=== PATIENT | male | born 1945 | race Two or more races ===

== ENCOUNTER 2017-06-22 11:35 | Day surgery (SDC) | payer MEDICARE ==
[2017-06-16 10:07] VITALS: BMI 37.3
--- NOTE | 2017-06-21 20:28 | HP ---
HISTORY AND PHYSICAL DATE OF SURGERY: 06/22/2017 Marcos Ramirez is a 72-year-old patient seen with progressive left knee pain. Treatment options were discussed. He elected to proceed with left knee arthroscopy. Consent was obtained. Medical clearance provided by Dr. Olivares. PAST MEDICAL HISTORY: 1. Hypertension. 2. Asthma. 3. Cardiovascular disease. 4. Gout. PAST SURGICAL HISTORY: 1. Appendectomy. 2. Herniorrhaphy. 3. Knee arthroscopy. DAILY MEDICATIONS: 1. Atenolol. 2. Enalapril. 3. Singulair. 4. Symbicort. 5. Allopurinol. 6. Aspirin. ALLERGIES: PENICILLIN. SOCIAL HISTORY: Patient denies current tobacco use. PHYSICAL EVALUATION OF THE LEFT KNEE: Range of motion negative 3 to 120 degrees. Mild effusion. Tenderness, medial joint line. Positive medial Radha's. Ligaments stable. Crepitus in medial patellofemoral compartments with range of motion. Hip rotation without pain. Distal neurovascular exam intact. RADIOGRAPHS: Radiographs of the left knee revealed moderate medial patellofemoral compartment osteoarthritis. An MRI of the left knee revealed medial meniscal tear and osteoarthritis. IMPRESSION: 1. Internal derangement of the left knee with medial meniscal tear. 2. Left knee osteoarthritis. 3. Hypertension. 4. Asthma. PLAN: Left knee arthroscopy with partial meniscectomy and debridement. MMODL / IJN: [id number] /
[~2017-06-22 11:35] MED LIST: DEXAMETHASONE SOD PHOSPHATE 10 MG/ML 1 ML VIAL IV ONE; HYDROmorphone 0.5 MG/0.5 ML SYRINGE IVP PRN; LACTATED RINGERS 1,000 ML IV SCH; LIDOCAINE 1% 20 ML VIAL (10MG/ML) FOR IV START INTRADERMA PRN; MIDAZOLAM 2 MG/2 ML VIAL IV PRN; ONDANSETRON 4 MG/2 ML VIAL IVP ONE; SCOPOLAMINE 1.5MG/72HR PATCH TRANSDERM ONE; ceFAZolin IN SWFI 2 GM/20 ML SYRINGE IVP ONE
[2017-06-22] MEDS ORDERED: BUPIVACAINE (PF) 0.25% 30 ML VIAL SQ ONE (12:45)
[2017-06-22] MEDS ORDERED: fentaNYL (PF) 50 MCG/ML 2 ML AMP ONE (13:04)
[2017-06-22] MEDS ORDERED: LIDOCAINE 1% INJ 10MG/ML (20 ML MDV) ONE (13:04)
[2017-06-22] MEDS ORDERED: MIDAZOLAM 2 MG/2 ML VIAL ONE (13:04)
[2017-06-22] MEDS ORDERED: PROPOFOL 10 MG/ML 20 ML VIAL IV ONE (13:04)
[2017-06-22] MEDS ORDERED: KETAMINE 10 MG/ML 20 ML VIAL ONE (13:04)
[2017-06-22] MEDS ORDERED: SUCCINYLCHOLINE CHLORIDE VIAL 200 MG/10 ML VIAL IV ONE (13:04)
[2017-06-22] MEDS ORDERED: GLYCOPYRROLATE 0.2 MG/ML 2 ML VIAL ONE (13:04)
[2017-06-22] MEDS ORDERED: LACTATED RINGERS 1,000 ML IV ONE (14:07)
--- NOTE | 2017-06-22 14:11 | P.OP ---
Date of Procedure: 06/22/17 Preoperative Diagnosis: Internal derangement left knee Postoperative Diagnosis: 1. Tear medial and lateral meniscus left knee 2. Grade 2/3 chondromalacia medial femoral condyle left knee 3. Grade 2/3 chondromalacia patella left knee 4. Partial ACL tear left knee 5. Reactive synovitis medial and suprapatellar compartments left knee Procedure(s) Performed: 1. Arthroscopic partial medial and lateral meniscectomy left knee 2. Arthroscopic chondroplasty medial femoral condyle left knee 3. Arthroscopic chondroplasty patella left knee 4. Arthroscopic debridement partial ACL tear left knee 5. Arthroscopic partial synovectomy medial and suprapatellar compartments left knee Anesthesia: GETA, local Surgeon: Lorenzo Mackey Estimated Blood Loss (ml): 7 Pathology: none sent Condition: stable Disposition: PACU Indications for Procedure: 72-year-old patient seen with progressive left knee pain. After treatment options were discussed, he elected to proceed with arthroscopy. Operative Findings: see description of procedure Description of Procedure: Patient was taken to the operative suite. Patient underwent a general anesthetic by the department of anesthesia. Patient was given preoperative antibiotics. The left lower extremity was placed in a well-padded arthroscopic leg sharma. The left leg was prepped and draped in the normal sterile orthopedic fashion. A lateral parapatellar and suprapatellar incision was made. Trochars were inserted. Arthroscopy was initiated. Suprapatellar pouch revealed diffuse thick reactive synovitis. The patellofemoral joint appeared to articulate congruently. There as grade 2/3 chondromalacia of the patella and femoral sulcus with osteochondral tears.. The scope was guided into the medial gutter. No loose bodies or plica were identified. The scope was then guided into the medial compartment. A medial parapatellar incision was made. Trocar inserted followed by probe. Was a complex tear medial meniscus involving the mid body and posterior horn. There were grade 2/3 chondromalacia changes of the medial femoral condyle with osteochondral tears. There was an area of grade 4 chondromalacia involving the medial tibial plateau medially. There was reactive synovitis anteriorly. I performed a partial medial meniscectomy down to stable tissue. I performed a chondroplasty of the medial femoral condyle down to stable tissue and partial synovectomy. The residual meniscus was stable as was the residual osteochondral surface of the femoral condyle. Scope and probe were then guided into the intercondylar notch. Cruciates were identified with some partial tearing noted of the anterior fibers of the anterior cruciate ligament. I debrided that down to stable tissue. It involved only tendon 20% with the remaining 80 a 90% found to be stable. The PCL was stable.. The scope and probe were then guided into lateral compartment. There were some superficial tearing of the midbody lateral meniscus. There were grade 1 chondromalacia changes of the lateral tibial plateau with no osteochondral tears. I performed a partial lateral meniscectomy down to stable tissue. The residual meniscus was found to be stable. The scope was in guided back into the suprapatellar compartment. I introduced a motorized shaver into the super patellar compartment. I debrided some piecemeal fragments of meniscus I encountered. I performed a chondroplasty of the patella down to stable tissue. I performed a partial synovectomy. The residual osteochondral surface of the patella was stable. I now took one more look on the entire knee, no residual debris. Instruments were now removed from the joint. The joint was infiltrated with .25% Marcaine. Steri-Strips were applied to the portal sites. Sterile dressings were applied. The patient was placed into a ZEB hose. No tourniquet was utilized. The patient was awakened, transferred to a bed and taken to recovery stable satisfactory condition.
[2017-06-22 14:13] VITALS: TEMP 96.9
[2017-06-22 15:20] VITALS: RESP 18
[2017-06-22 16:09] VITALS: BP 138/79; PULSE 74
== END 2017-06-22 16:35 | disposition home or self-care (01) ==
LOC: OR 11:35
PROVIDERS: ATTEND Orthopaedic Surgery
DX: S83.242A Other tear of medial meniscus, current injury, left knee, initial encounter (principal); S83.282A Other tear of lateral meniscus, current injury, left knee, initial encounter; X58.XXXA Exposure to other specified factors, initial encounter; M22.42 Chondromalacia patellae, left knee; S83.512A Sprain of anterior cruciate ligament of left knee, initial encounter; M65.862 Other synovitis and tenosynovitis, left lower leg; M17.12 Unilateral primary osteoarthritis, left knee; I10 Essential (primary) hypertension; J45.909 Unspecified asthma, uncomplicated; I25.10 Atherosclerotic heart disease of native coronary artery without angina pectoris; M10.9 Gout, unspecified; Z79.82 Long term (current) use of aspirin; Z79.51 Long term (current) use of inhaled steroids; Z79.899 Other long term (current) drug therapy; Z88.0 Allergy status to penicillin
CPT/HCPCS: 29880; J2250; J0330; J1100; J2405; J2001; J3010; J2704; J0690

== ENCOUNTER → 2017-11-15 | Outpatient (CLI) | payer MEDICARE ==
--- NOTE | 2017-11-15 23:40 | MR ---
EXAMINATION TYPE: MR tspine/lspine wo con DATE OF EXAM: 11/15/2017 COMPARISON: NONE HISTORY: Back Pain x3 weeks TECHNIQUE: Multiplanar, multisequence imaging of the lumbar spine is performed without IV contrast. FINDINGS: The lumbar vertebra have normal alignment. There is mild uniform narrowing of lumbar disc s paces. The neural foramina are fairly well-maintained. There are small posterior disc herniation at L 5-S1 without significant impingement on the spinal canal. There is no spinal stenosis. There is mild hypertrophic facet arthropathy at L4-5 and L5-S1. There is no lumbar paraspinal mass. There is no com pression fracture. I see no focal bone destruction. There is small posterior disc bulge at L2-3 witho ut impingement on the spinal canal. There is moderate anterior hypertrophic spurring at L2-3 L3-4. IMPRESSION: Spondylotic changes. No spinal stenosis. Small posterior L5-S1 disc bulging and herniation without im pingement on the spinal canal. No spinal stenosis. No fracture. Moderate anterior osteophyte formatio n at L2-3 L3-4. MR scan thoracic spine. TECHNIQUE: Multiplanar multiecho imaging of the thoracic spine was performed with no contrast. FINDINGS: Thoracic vertebra have fairly normal spacing and alignment for the patient's age. There is no arian elizabeth fracture. There is no spinal stenosis. Thoracic spinal cord has normal signal pattern without ev idence of edema. There is no thoracic paraspinal mass. There is no evidence of focal bone destruction . Posterior elements appear intact. There is mild anterior spurring of the endplates. IMPRESSION: Mild multilevel spondylotic changes. No fracture. No spinal stenosis.
== END | disposition home or self-care (01) ==
LOC: RADMRIMAIN 20:23
PROVIDERS: ATTEND Internal Medicine
DX: M25.78 Osteophyte, vertebrae (principal); M51.27 Other intervertebral disc displacement, lumbosacral region; M47.814 Spondylosis without myelopathy or radiculopathy, thoracic region
CPT/HCPCS: 72146; 72148

== ENCOUNTER → 2018-03-30 | Outpatient (CLI) | payer MEDICARE | END | disposition home or self-care (01) | LOC: LABPAT 10:44 | PROVIDERS: ATTEND Orthopaedic Surgery | DX: Z01.812 Encounter for preprocedural laboratory examination (principal) | CPT/HCPCS: 87070 ==

== ENCOUNTER 2018-04-23 10:11 | Day surgery (SDC) | payer MEDICARE ==
[2018-04-17 16:10] VITALS: BMI 36.6
--- NOTE | 2018-04-22 19:13 | HP ---
HISTORY AND PHYSICAL REASON FOR ADMISSION: Surgery 04/23/2018. HISTORY OF PRESENT ILLNESS: Mikey Ramirez is a 73-year-old patient seen with symptomatic left knee osteoarthritis. We discussed treatment options. He elected to proceed with total knee arthroplasty. Consent was obtained. Medical clearance was provided by Dr. Olivares. PAST MEDICAL HISTORY: Hypertension, asthma, gout. PAST SURGICAL HISTORY: Appendectomy, herniorrhaphy, knee arthroscopy. MEDICATIONS: Atenolol, enalapril, Singulair, Symbicort, allopurinol. ALLERGIES: PENICILLIN. SOCIAL HISTORY: Patient denies tobacco use. PHYSICAL EXAMINATION: Evaluation of left knee: Range of motion is -2 to 115 degrees, tenderness medial joint line. Crepitus medial patellofemoral compartments with range of motion. Ligaments stable. Hip rotation without pain. Distal neurovascular exam is intact. RADIOGRAPHS: Left knee radiographs reveal severe medial moderate patellofemoral compartment osteoarthritis. IMPRESSION: 1. Left knee osteoarthritis. 2. Hypertension. 3. Asthma. 4. Gout. PLAN: Left total knee arthroplasty. Surgery scheduled for 04/23/2018. MMODL / IJN: [id number] /
[~2018-04-23 10:11] MED LIST changes: +ACETAMINOPHEN TAB 500 MG TAB PO ONE; -DEXAMETHASONE SOD PHOSPHATE 10 MG/ML 1 ML VIAL IV ONE; +FUROSEMIDE 20 MG TAB PO SCH; -HYDROmorphone 0.5 MG/0.5 ML SYRINGE IVP PRN; -LACTATED RINGERS 1,000 ML IV SCH; +MELOXICAM 7.5 MG TAB PO ONE; -ONDANSETRON 4 MG/2 ML VIAL IVP ONE; -SCOPOLAMINE 1.5MG/72HR PATCH TRANSDERM ONE; +TRANEXAMIC ACID 1,000 MG in SODIUM CHLORIDE 0.9% 50 ML IVPB ONE; -ceFAZolin IN SWFI 2 GM/20 ML SYRINGE IVP ONE; +fentaNYL (PF) 50 MCG/ML 2 ML AMP IV PRN
[2018-04-23 10:47] VITALS: RESP 16
[2018-04-23] MEDS ORDERED: ONDANSETRON 4 MG/2 ML VIAL IVP ONE (11:14)
[2018-04-23] MEDS ORDERED: DEXAMETHASONE SOD PHOSPHATE 10 MG/ML 1 ML VIAL IV ONE (11:15)
[2018-04-23] MEDS: LACTATED RINGERS 1,000 ML IV SCH ×4 (11:21→20:55)
[2018-04-23] MEDS ORDERED: MIDAZOLAM 2 MG/2 ML VIAL IV ONE (11:35)
[2018-04-23] MEDS ORDERED: MIDAZOLAM 2 MG/2 ML VIAL ONE (11:56)
[2018-04-23] MEDS ORDERED: SODIUM CHLORIDE 0.9% 100 ML BAG ONE (11:56)
[2018-04-23] MEDS ORDERED: ceFAZolin 1,000 MG VIAL IVPB ONE (11:56)
[2018-04-23] MEDS ORDERED: PROPOFOL 10 MG/ML 20 ML VIAL IV ONE (11:56)
[2018-04-23] MEDS ORDERED: TRANEXAMIC ACID 1,000 MG/10 ML VIAL ONE (11:56)
[2018-04-23] MEDS: ceFAZolin IN SWFI 2 GM/20 ML SYRINGE IVP ONE ×2 (11:56→16:48)
[2018-04-23] MEDS ORDERED: CLINDAMYCIN 1,800 MG in SODIUM CHLORIDE 0.9% IRRIGATIO 3,000 ML IRRIGATION ONE (11:56)
[2018-04-23] MEDS ORDERED: fentaNYL (PF) 50 MCG/ML 2 ML AMP ONE (11:56)
[2018-04-23] MEDS: ROPIVACAINE 246.25 MG, EPINEPHrine 0.5 MG, KETOROLAC 30 MG, cloNIDine HCL/PF 80 MCG, WA... MISCELLANE ONE ×10 (12:34→13:33)
[2018-04-23] MEDS ORDERED: ROPIVACAINE 1,100 MG, SODIUM CHLORIDE 0.9% 500 ML 330 ML MISCELLANE PRN ×2 (12:44)
--- NOTE | 2018-04-23 12:44 | P.ONQ ---
Anesthesiology Proc Note - PNB - Peripheral Nerve Block Performed Left Adductor Canal Infusion Time Out Performed: Yes Procedure Start Time: 11:34 Procedure Stop Time: 11:45 Indication: Acute Post-Operative Pain, Requested by physician Sedation Type: Sedate with meaningful contact maintained Preparation: Sterile Dressing Position: Supine Catheter: Indwelling Needle Types: On-Q Needle Size: 100mm (4") Needle Gauge: 21 Technique: Ultrasound Injectate: 0.5% Ropivacaine (see comment for volume) (ropi .5% 20cc) Blood Aspirated: No Pain Paresthesia on Injection Noted: No Resistance on Injection: Normal Events: Uneventful and Well Tolerated
[2018-04-23] MEDS ORDERED: traMADol 50 MG TAB PO PRN (14:22)
[2018-04-23] MEDS ORDERED: HYDROmorphone 1 MG/ML 1 ML SYRINGE IVP PRN ×3 (14:22)
[2018-04-23] MEDS ORDERED: HYDROcodone/APAP 5-325MG 1 EACH TAB PO PRN (14:22)
[2018-04-23] MEDS ORDERED: NALOXONE 0.4 MG/ML 1 ML VIAL IV PRN (14:22)
[2018-04-23] MEDS ORDERED: ONDANSETRON 4 MG/2 ML VIAL IVP PRN (14:22)
--- NOTE | 2018-04-23 14:22 | P.OP ---
Date of Procedure: 04/23/18 Preoperative Diagnosis: Left knee osteoarthritis Postoperative Diagnosis: Left knee osteoarthritis Procedure(s) Performed: Left total knee arthroplasty Implants: 1. Depuy attune size 7 left cruciate retaining cemented femur 2. Depuy attune size 7 fixed bearing cemented tibial baseplate 3. Depuy attune size 7 fixed bearing cruciate retaining 5 mm polyethylene tibial insert 4. Depuy attune 41 mm all polyethylene cemented patella Anesthesia: regional (Adductor canal catheter), local, spinal Surgeon: Lorenzo Mackey Marketing Account Executive #1: Saurav Charles Estimated Blood Loss (ml): 40 Pathology: other (Bone) Condition: stable Disposition: PACU Indications for Procedure: 73-year-old patient seen with symptomatic left knee osteoarthritis. After treatment options were discussed, he elected to proceed with total knee arthroplasty Operative Findings: See description of procedure Description of Procedure: Patient was taken to the operative suite after having an adductor canal catheter placed by the department of anesthesia. Patient underwent a spinal anesthetic by the department of anesthesia. Patient was given preoperative IV intake antibiotics and TXA. A well-padded tourniquet was placed about the left lower extremity. The lower extremity was then prepped and draped in the normal sterile orthopedic fashion. The extremity was elevated, a tourniquet was insufflated to 300. A standard anterior incision was made sharply through skin. Dissection was taken down through the subcutaneous soft tissues down to the extensor mechanism. A medial arthrotomy was performed, patella was everted and knee was flexed. There was advanced osteoarthritis noted. I introduced my distal intramedullary femoral drill. I then introduced the distal femoral cutting jig. Yao FLOR secured the cutting jig with 2 pins. I held retractors in position while Yao FLOR performed the distal femoral resection through the guide area we now removed her distal femoral cutting guide. We now placed our 4-in-1 femoral cutting block and positioned and it was secured with 2 pins by Yao FLOR while I held the block in position. The distal femoral finishing was now completed. A proximal tibial cutting guide was positioned. I held the guide in the appropriate position with both hands well Yao FLOR inserted stabilizing pins into the guide. Proximal tibial cut was made. We now placed a trial femoral component into position, along with an appropriate size tibial tray and insert. We now took the knee through range of motion and had full extension good flexion and good overall soft tissue balance noted. The patella was everted and stabilized with 2 towel clips held by Yao FLOR while I performed a flush with patellar quad tendon utilizing a fresh sawblade. We templated the patella, appropriate drill holes were made. An appropriate trial patella was positioned, knee was taken through full range of motion with the patella tracking very nicely. The trial patella was removed. Drill holes were made through the femoral component. All trial components were removed after marking off the appropriate rotation of the tibia. Retractors were now positioned along the proximal tibia. An appropriate keel punch was made with the appropriate size tibial guide by myself on Yao FLOR assisted by holding retractors. At this point appropriate size implants were chosen and opened. The joint was irrigated copiously with pulse lavage mechanical irrigation. The posterior capsule was infiltrated with local analgesic. The wound was irrigated with pulse lavage mechanical irrigation. We mixed antibiotic methylmethacrylate. We placed the knee into flexion. We placed multiple retractors assisted by Yao FLOR to expose the proximal tibia. Once the methyl methacrylate was ready, the tibial component was cemented into place removing any excess methylmethacrylate form by both myself and Yao FLOR. The femoral component was cemented into place removing the removing any excess methylmethacrylate performed by both myself and Yao FLOR. We then inserted the appropriate size polyethylene tibial insert. We made sure that it was locked into position. We took the knee into full extension, and then back in a flexion making sure we had removed any excess methylmethacrylate. The patellar component was then cemented down and secured with clamp. Excess methylmethacrylate removed. We kept the knee in full extension, patellar clamp in position until methylmethacrylate had hardened. Once it had hardened the patellar clamp was removed. The knee was taken through full range of motion. The patella tracked nicely. There was good soft tissue balancing. The tourniquet was now released. Additional hemostasis was achieved via electrocautery. A second gram of TXA was given. The wound again was irrigated with pulse lavage mechanical irrigation. The superficial soft tissues were infiltrated local analgesic. The extensor mechanism was repaired with Vicryl. We checked the repair with range of motion and it was stable. The subcutaneous soft tissues were repaired with Vicryl in layers. The skin was approximated with pernio/Dermabond. Sterile dressings were applied followed by loose web roll and Agustin bandage. The patient was transferred to a bed, and taken to recovery in stable and satisfactory condition. Yao FLOR assisted with this complex procedure.
--- NOTE | 2018-04-23 14:59 | XR ---
EXAMINATION TYPE: XR knee limited LT DATE OF EXAM: 04/23/2018 CLINICAL HISTORY: Left knee pain and arthritis status post total knee replacement. TECHNIQUE: Portable AP and crosstable lateral views of the left knee are obtained immediately postop eratively. COMPARISON: None FINDINGS: Metallic hardware from total left knee arthroplasty is seen and appears satisfactory in al ignment and position. There is evidence of recent surgery with diffuse subcutaneous gas , vertical s kin evette, and percutaneous suprapatellar surgical drain noted. IMPRESSION: METALLIC HARDWARE FROM TOTAL LEFT KNEE ARTHROPLASTY IS SATISFACTORY IN ALIGNMENT.
[2018-04-23] MEDS: HYDROcodone/APAP 5-325MG 1 EACH TAB PO PRN ×2 (17:04→22:53)
[2018-04-23] MEDS: ceFAZolin IN SWFI 2 GM/20 ML SYRINGE IVP SCH (18:12)
[2018-04-23] MEDS ORDERED: ALBUTEROL NEBULIZED 2.5 MG/3 ML INHALATION PRN (18:19)
[2018-04-23] MEDS ORDERED: ALPRAZolam 0.5 MG TAB PO PRN (18:19)
--- NOTE | 2018-04-23 18:36 | P.CONS ---
History of Present Illness - Reason for Consult Consult date: 04/23/18 Medical management Requesting physician: Lorenzo Mackey - Chief Complaint Left total knee arthroplasty, asthma, hypertension, severe GERD - History of Present Illness 73-year-old male mildly overweight [address] Oliv[address]'s patient with past medical history of asthma, hypertension, hyperlipidemia and BPH who had suffered from severe increase osteoarthritis of the left knee for the last few years, patient ended up having arthroscopy of the knee few years ago and has done well with it for few years. In the last few month patient has been having increased pain and arthritis decreased mobility and worsening symptom over the left knee was seen Dr. Mackey and diagnosed with severe advanced osteoarthritis and plan to go for total knee arthroplasty. Surgery was done successfully today with no major complication patient sitting on the side of the bed with his family around feeling well pain is under control blood pressure is well controlled not having any trouble with his respiration. Review of Systems CONSTITUTIONAL: over Wt in no acute respiratory distress. EYES: No icterus sclerae, no conjunctivitis. EARS, NOSE, MOUTH, THROAT, and FACE: No sore throat, lymphadenopathy, carotid bruits or deformity. RESPIRATORY: No SOB cough or wheezes. CARDIOVASCULAR: No CP, Palpitation, PND, Orthopnea, or angina. GASTROINTESTINAL: No Abd pain, Nausea or vomiting, no Diarrhea or constipation, No GI Bleed, no distention or masses. GENITOURINARY: Negative for Hematuria or UTI, no kidney stones. INTEGUMENT/BREAST: Negative for any muscular injury with mild osteoarthritis.. HEMATOLOGIC/LYMPHATIC: Negative for bleed or purpura. MUSCULOSKELTAL: Negative for Myalgia or arthralgia. L Knee surgery. NEURLOGICAL: No LOC, Sz or syncope, blurred vision dizziness or abnormality.. BEHAVIORAL/PSYCH: Negative. ENDOCRINE: Negative. Past Medical History Past Medical History: Asthma, Eye Disorder, GERD/Reflux, Hypertension, Osteoarthritis (OA) Additional Past Medical History / Comment(s): MACULAR DEGENERATION History of Any Multi-Drug Resistant Organisms: None Reported Past Surgical History: Appendectomy, Heart Catheterization, Hernia Repair Additional Past Surgical History / Comment(s): ARTHROSCOPIC RIGHT AND LEFT KNEE , BILATERAL WRIST SURGERY, LEFT HAND -JOINT SURGERY, BRONCHOSCOPY , UMBICAL HERNIA REPAIR , CATARACT SURGERY-BILATERAL Past Anesthesia/Blood Transfusion Reactions: No Reported Reaction Past Psychological History: Anxiety Smoking Status: Former smoker Past Alcohol Use History: Daily Additional Past Alcohol Use History / Comment(s): STARTED SMOKING AT AGE 14 QUIT 1968 SMOKED 1PPD Past Drug Use History: None Reported - Past Family History Mother Family Medical History: No Reported History Medications and Allergies Home Medications Medication Instructions Recorded Confirmed Type ALPRAZolam [Xanax] 0.5 mg PO BID PRN 06/16/17 04/23/18 History Albuterol Inhaler [Ventolin Hfa 1 - 2 puff INHALATION Q6HR PRN 06/16/17 History Inhaler] Allopurinol [Zyloprim] 300 mg PO DAILY 06/16/17 04/23/18 History Ascorbic Acid [Vitamin C] 500 mg PO DAILY 06/16/17 04/17/18 History Aspirin 81 mg PO DAILY 06/16/17 04/17/18 History Atenolol 25 mg PO DAILY 06/16/17 04/23/18 History Budesonide-Formot 160-4.5 Mcg 1 puff INHALATION BID 06/16/17 04/23/18 History [Symbicort 160-4.5 Mcg Inhaler] Enalapril [Vasotec] 7.5 mg PO DAILY 06/16/17 04/23/18 History Furosemide [Lasix] 20 mg PO MOWEFR 06/16/17 04/23/18 History Montelukast Sodium [Singulair] 10 mg PO 1600 06/16/17 04/23/18 History Pantoprazole Sodium 40 mg PO DAILY 06/16/17 04/23/18 History Vit C/E/Zn/Coppr/Lutein/Zeaxan 1 each PO BID 06/16/17 04/17/18 History [Preservision Areds 2 Softgel] Allergies Allergy/AdvReac Type Severity Reaction Status Date / Time Penicillins Allergy Rash/Hives Verified 04/23/18 10:28 Physical Exam Vitals: Vital Signs Temp Pulse Resp BP Pulse Ox 04/23/18 16:58 97.8 F 59 L 143/78 100 04/23/18 15:56 59 L 16 120/75 99 04/23/18 15:41 58 L 16 116/78 98 04/23/18 15:24 57 L 16 119/70 96 04/23/18 15:09 60 16 118/67 96 04/23/18 14:56 61 16 118/72 95 04/23/18 14:36 97.5 F L 78 16 117/58 95 04/23/18 10:46 98.2 F 60 16 143/75 95 Intake and Output 04/23/18 04/23/18 04/23/18 06:59 14:59 22:59 Intake Total 801 150 Output Total 40 Balance 761 150 Intake: IV 801 150 Output: Estimated Blood Loss 40 Other: Weight 115.666 kg General Appearance: Alert, cooperative, no distress, appears stated age, mildly over Wt. Neck HEENT: Supple, no lymphadenopathy, no thyroid enlargement, no carotid bruits. Lungs: Clear to auscultation without crackles or wheezes no rhonchi, no deformity. Chest Wall: Chest wall normal expansion with deep inspiration no tenderness and no deformity was found on exam, no costochondral pain or discomfort. Heart: Regular rate and rhythm, S1, S2 normal, no murmur, rub or gallop. Back: Symmetric, no curvature, ROM normal, no CVA tenderness. Abdomen: Soft, non-tender, bowel sounds active all four quadrants, no masses, no organomegaly. Extremities: normal R side, atraumatic, no cyanosis or edema, L side surgery side with pain management system above the knee no redness or deformity no bleeding. Pulses: 2+ and symmetric. Skin: Skin color, texture, tugor normal, no rashes or lesions. Neurologic: Alert oriented x3 cranial nerves II through XII intact, no motor deficit, no abnormal balance or gait. Assessment and Plan Plan: 1 post left total knee arthroplasty: Stable surgery went well, continue postsurgical protocol with GI, DVT and pulmonary protocol. Med reconsultation was done patient is very stable hemodynamically. 2 asthma: Continue his Ventolin and Symbicort also continue patient on Singulair. 3 hypertension: Has been on enalapril 7.5 mg a day and atenolol 25 daily resume both medication. 4 chronic edema: Has been on furosemide 20 mg a day resume medication tomorrow. 5 gout: No flareup lately has been on allopurinol 300 mg a day. 6 mild anxiety attacks: Has been on Xanax on as needed basis. 7 BPH: Watch for any urinary retention. 8 GERD/GI prophylaxis: Resume pantoprazole 40 mg daily. 8 DVT prophylaxis: Patient was started on Lovenox per orthopedic continue medication early mobilization and knee-high ZEB hose will be done as well. CODE STATUS: Full code. Dr. Mackey thank you very much for the consult if I can be any further help to please let me know thank you.
[2018-04-23] MEDS: SYMBICORT 160-4.5 MCG INHALER INHALATION SCH (19:14)
[2018-04-23] MEDS ORDERED: SENNOSIDES-DOCUSATE SODIUM 1 EACH TAB PO SCH (21:00)
[2018-04-24] MEDS: ceFAZolin IN SWFI 2 GM/20 ML SYRINGE IVP SCH (00:29)
[2018-04-24] MEDS: LACTATED RINGERS 1,000 ML IV SCH (05:08)
[2018-04-24 07:24] VITALS: BP 145/72; PULSE 67; TEMP 97.9
[2018-04-24] MEDS: HYDROcodone/APAP 5-325MG 1 EACH TAB PO PRN ×2 (07:27→14:33)
[2018-04-24] MEDS ORDERED: PANTOPRAZOLE 40 MG TABLET PO SCH (07:30)
[2018-04-24] MEDS: SYMBICORT 160-4.5 MCG INHALER INHALATION SCH (08:02)
--- NOTE | 2018-04-24 08:03 | P.PN ---
Progress Note - Text Progress Note Date: 04/24/18 The patient is status post[ 1] adductor canal catheter placement. The catheter was placed for postoperative pain control, status post total [left Knee] arthroplasty. Ropivacaine 0.2% is infusing at[ 8] mLs per hour. The patient has no complaints of[ left ] lower extremity numbness or weakness. Patient's VAS score is[ 4 ]-10. Assessment: Patient's adductor canal catheter is in place and working appropriately. Plan: continue infusion and adjust it as needed. Continue current rate
[2018-04-24 08:40] LABS: Basophils % (A) 0 %; Eosinophils # (A) 0.1 k/uL (0-0.7); Eosinophils % (A) 0 %; HCT 48.9 % (39.0-53.0); HGB 16.9 gm/dL (13.0-17.5); Lymphocytes # (A) 2.1 k/uL (1.0-4.8); Lymphocytes % (A) 12 %; MCH 31.7 pg (25.0-35.0); MCHC 34.5 g/dL (31.0-37.0); MCV 91.8 fL (80.0-100.0); Mean Platelet Volume 7.5; Monocytes # (A) 1.1 k/uL (0-1.0); Monocytes % (A) 6 %; Neutrophils # (A) 14.5 k/uL (1.3-7.7); Neutrophils % (A) 81 %; Platelet Count 228 k/uL (150-450); RBC 5.33 m/uL (4.30-5.90); RDW 14.2 % (11.5-15.5); WBC 17.9 k/uL (3.8-10.6)
[2018-04-24] MEDS ORDERED: ALLOPURINOL 300 MG TAB PO SCH (09:00)
[2018-04-24] MEDS ORDERED: ATENOLOL 25 MG TAB PO SCH (09:00)
[2018-04-24] MEDS ORDERED: ASCORBIC ACID 500 MG TAB PO SCH (09:00)
[2018-04-24] MEDS ORDERED: ENALAPRIL PO SCH (09:00)
[2018-04-24] MEDS ORDERED: ENOXAPARIN 30 MG/0.3 ML SYRINGE SQ SCH (09:00)
--- NOTE | 2018-04-24 10:23 | US ---
EXAMINATION TYPE: US venous doppler duplex LE LT DATE OF EXAM: 04/24/2018 10:03 AM COMPARISON: CLINICAL HISTORY: edema, post surgery. Knee replacement surgery yesterday. Swelling, unable to bend k nee SIDE PERFORMED: Left TECHNIQUE: The lower extremity deep venous system is examined utilizing real time linear array sonog julio with graded compression, doppler sonography and color-flow sonography. VESSELS IMAGED: External Iliac Vein (EIV) Common Femoral Vein Deep Femoral Vein Greater Saphenous Vein * Femoral Vein Popliteal Vein Small Saphenous Vein * Proximal Calf Veins (* superficial vessels) There is normal flow, compressibility, vascular waveforms. Left Leg: Appears negative for acute DVT Subcutaneous tissues show edema channels. IMPRESSION: No evident deep venous thrombosis at or above the left knee, follow-up as indicated.
--- NOTE | 2018-04-24 13:17 | P.PN ---
Subjective Progress Note Date: 04/24/18 Principal diagnosis: Status post left total knee arthroplasty Patient is seen today resting in his hospital bed, he appears comfortable. Exam today well with therapy. Denies any chest pain or shortness of breath. Pain is well-controlled. Objective - Vital Signs Vital signs: Vital Signs Temp 97.9 F 04/24/18 07:24 Pulse 67 04/24/18 07:24 Resp 16 04/24/18 07:24 BP 145/72 04/24/18 07:24 Pulse Ox 98 04/24/18 07:24 Intake & Output 04/23/18 04/24/18 04/24/18 18:59 06:59 18:59 Intake Total 951 1040 280 Output Total 40 Balance 911 1040 280 Weight 115.666 kg Intake: IV 951 Intake, IV Titration 560 Amount Lactated Ringers 1,000 ml 560 @ 70 mls/hr IV .[id number] Rx#:[id number] Oral 480 280 Output: Estimated Blood Loss 40 Other: # Voids 2 - Exam Left lower extremity: Incision is clean, dry, and intact. The exofin fusion tape is in good condition. There is minimal soft tissue swelling and ecchymosis surrounding the medial and lateral aspects of the incision. Calf is soft, no tenderness with palpation. Plantar flexion, dorsiflexion, EHL, FHL are intact. Sensory exam to light touch throughout the extremity is intact, dorsal pedis pulses 2+. - Labs CBC & Chem 7: 04/24/18 08:01 Labs: Abnormal Lab Results - Last 24 Hours (Table) 04/24/18 Range/Units 08:01 WBC 17.9 H (3.8-10.6) k/uL Neutrophils # 14.5 H (1.3-7.7) k/uL Monocytes # 1.1 H (0-1.0) k/uL Assessment and Plan Plan: Assessment: Postop day #1 status post left total knee arthroplasty Plan: Pain control, we'll discharge home on oral medication GI and DVT prophylaxis, aspirin 81 mg twice a day Wound care instructions were discussed Home physical therapy and nursing after discharge Medical recommendations Discharge planning: Patient will be discharged home today Time with Patient: Less than 30
--- NOTE | 2018-04-24 13:24 | P.DS ---
Providers Date of admission: 04/23/2018 Expected date of discharge: 04/24/18 Attending physician: Lorenzo Mackey Consults: 04/23/18 14:22 Consult Physician Routine Consulting Provider: Elaina Olivares Reason/Comments: Medical management Do you want consulting provider notified?: Yes Primary care physician: Elaina Olivares Hospital Course: Date of admission: 04/23/2019 Date of discharge: 04/24/2018 Admission diagnosis: Status post left total knee arthroplasty Discharge diagnosis: Same Attending physician: Dr. Mackey Surgical procedures: Left total knee arthroplasty Brief history: Patient is a 73-year-old male with a history of with progressive primary left knee osteoarthritis. At this point patient has failed conservative treatment measures and has opted to proceed with a elective left total knee arthroplasty. Hospital course: Details of patient's surgery can be found in operative report. Patient tolerated the procedure well and was subsequently transported to orthopedic floor. Patient's orthopeidc and medical care was provided daily. Patient had daily laboratory tests performed for evaluation of overall blood counts. Patient had daily physical therapy to include strengthening range of motion as well as education with walker ambulation. Patient had daily CPM usage as part of their physical therapy program. Patient was treated with Lovenox for their postoperative DVT prophylaxis during their inpatient stay. Patient was noted to have a relatively uneventful postoperative course. Patient reported satisfactory pain control with oral pain medications by postoperative day 0. Patient showed satisfactory progress with physical therapy. Patient moved steadily through the program and had no difficulty meeting the goals by postoperative day 1. Given patient's otherwise satisfactory course and having met physical therapy goals, plan is to discharge patient home on postoperative day 1. Discharge condition/disposition: Patient will be discharged home in stable condition. Discharge medications: Instructions are given on resumption of patient's normal daily medications per primary care recommendation, in addition patient will be prescribed [place] 5 mg/325 mg, tramadol 50 mg, Colace 100 mg, aspirin 325 mg. Discharge instructions: 1. Wound care and infection precautions, keep incision dry and covered while showering, no lotions, creams, moisturizers. No soaking, tubs, pools, hottubs. Do not scrub over the incision. 2. Weight-bear as tolerated with walker / cane until follow-up. 3. Ice and elevate when necessary. Do not exceed 20 minutes per hour with ice pack. 4. Utilize compression sleeve until seen at first follow up appointment. 5. Visiting nursing care. 6. Home physical therapy including home CPM. 7. Pain meds and anticoagulants per prescription. 8. Pain medication has potential to cause constipation. Increase oral fluid and fiber intake. Contact primary care provider if you have not had a bowel movement within 48 hours after discharge 9. No anti-inflammatory medication until discussed at first post operative visit, this including Motrin, Aleve, Mobic, Diclofenac. 10. Follow up in office at 2 weeks postop with Yao Charles PA-C 11. Follow up with your primary care doctor 7-10 days after discharge. 12. Contact [facility] with any questions, . Procedures: Left total knee arthroplasty Patient Condition at Discharge: Good Plan - Discharge Summary Discharge Rx Participant: Yes New Discharge Prescriptions: New Aspirin 325 mg PO BID #60 tab Docusate [Colace] 100 mg PO DAILY #30 capsule Hydrocodone/Acetaminophen [[place] 5-325] 1 - 2 each PO Q6HR PRN #56 tab PRN Reason: Pain traMADol HCl [Ultram] 50 mg PO Q6H PRN #28 tab PRN Reason: Pain No Action Ascorbic Acid [Vitamin C] 500 mg PO DAILY ALPRAZolam [Xanax] 0.5 mg PO BID PRN PRN Reason: Anxiety Allopurinol [Zyloprim] 300 mg PO DAILY Pantoprazole Sodium 40 mg PO DAILY Enalapril [Vasotec] 7.5 mg PO DAILY Budesonide-Formot 160-4.5 Mcg [Symbicort 160-4.5 Mcg Inhaler] 1 puff INHALATION BID Albuterol Inhaler [Ventolin Hfa Inhaler] 1 - 2 puff INHALATION Q6HR PRN PRN Reason: Shortness Of Breath Montelukast Sodium [Singulair] 10 mg PO 1600 Atenolol 25 mg PO DAILY Vit C/E/Zn/Coppr/Lutein/Zeaxan [Preservision Areds 2 Softgel] 1 each PO BID Furosemide [Lasix] 20 mg PO MOWEFR Discharge Medication List ALPRAZolam [Xanax] 0.5 mg PO BID PRN 06/16/17 [History] Albuterol Inhaler [Ventolin Hfa Inhaler] 1 - 2 puff INHALATION Q6HR PRN [History] Allopurinol [Zyloprim] 300 mg PO DAILY 06/16/17 [History] Ascorbic Acid [Vitamin C] 500 mg PO DAILY 06/16/17 [History] Atenolol 25 mg PO DAILY 06/16/17 [History] Budesonide-Formot 160-4.5 Mcg [Symbicort 160-4.5 Mcg Inhaler] 1 puff INHALATION BID 06/16/17 [History] Enalapril [Vasotec] 7.5 mg PO DAILY 06/16/17 [History] Furosemide [Lasix] 20 mg PO MOWEFR 06/16/17 [History] Montelukast Sodium [Singulair] 10 mg PO 1600 06/16/17 [History] Pantoprazole Sodium 40 mg PO DAILY 06/16/17 [History] Vit C/E/Zn/Coppr/Lutein/Zeaxan [Preservision Areds 2 Softgel] 1 each PO BID [History] Aspirin 325 mg PO BID #60 tab 04/24/18 [Rx] Docusate [Colace] 100 mg PO DAILY #30 capsule 04/24/18 [Rx] Hydrocodone/Acetaminophen [[place] 5-325] 1 - 2 each PO Q6HR PRN #56 tab 04/24/18 [Rx] traMADol HCl [Ultram] 50 mg PO Q6H PRN #28 tab 04/24/18 [Rx] Follow up Appointment(s)/Referral(s): [facility], [NON-STAFF] - Saurav Charles PAC [PHYSICIAN GRAIN COMMODITY MANAGER] - 05/09/18 2:40 pm Jen Garcia NPC [Nurse Practitioner] - 05/01/18 9:45 am Activity/Diet/Wound Care/Special Instructions: Orthopedic Discharge Instructions: 1. Wound care and infection precautions, keep incision dry and covered while showering, no lotions, creams, moisturizers. No soaking, pools, hot tubs. Do not scrub over incision. 2. Weight-bear as tolerated with walker / cane until follow-up. 3. Ice and elevate when necessary. Do not exceed 20 minutes per hour with ice pack. 4. Utilize compression sleeve until seen at first follow up appointment. 5. Pain meds and anticoagulants per prescription. 6. Pain medication has potential to cause constipation. Increase oral fluid and fiber intake. Contact primary care provider if you have not had a bowel movement within 48 hours after discharge. 7. No anti-inflammatory medication until discussed at first post operative visit, this including Motrin, Aleve, Mobic, Diclofenac 8. Follow up in office at 2 weeks postop with Yoa Charles PA-C 9. Follow up with your primary care doctor 7-10 days after discharge. 10. Contact [facility] with any questions, . Discharge Disposition: HOME WITH HOME HEALTH SERVICES
--- NOTE | 2018-04-24 13:29 | P.PN ---
Subjective Progress Note Date: 04/24/18 73-year-old male mildly overweight [address] Olivares[address] patient with past medical history of asthma, hypertension, hyperlipidemia and BPH who had suffered from severe increase osteoarthritis of the left knee for the last few years, patient ended up having arthroscopy of the knee few years ago and has done well with it for few years. In the last few month patient has been having increased pain and arthritis decreased mobility and worsening symptom over the left knee was seen Dr. Mackey and diagnosed with severe advanced osteoarthritis and plan to go for total knee arthroplasty. Surgery was done successfully today with no major complication patient sitting on the side of the bed with his family around feeling well pain is under control blood pressure is well controlled not having any trouble with his respiration. 04/24: Patient has been ambulating in hallway well today with physical therapy. He does have some increased swelling to the left lower extremity and ultrasound which came back as negative for DVT. Pain is currently controlled. Patient is planned for discharge with the [facility] care. CONSTITUTIONAL: over Wt in no acute respiratory distress. EYES: No icterus sclerae, no conjunctivitis. EARS, NOSE, MOUTH, THROAT, and FACE: No sore throat, lymphadenopathy, carotid bruits or deformity. RESPIRATORY: No SOB cough or wheezes. CARDIOVASCULAR: No CP, Palpitation, PND, Orthopnea, or angina. GASTROINTESTINAL: No Abd pain, Nausea or vomiting, no Diarrhea or constipation, No GI Bleed, no distention or masses. GENITOURINARY: Negative for Hematuria or UTI, no kidney stones. INTEGUMENT/BREAST: Negative for any muscular injury with mild osteoarthritis.. HEMATOLOGIC/LYMPHATIC: Negative for bleed or purpura. MUSCULOSKELTAL: Negative for Myalgia or arthralgia. L Knee surgery. NEURLOGICAL: No LOC, Sz or syncope, blurred vision dizziness or abnormality.. BEHAVIORAL/PSYCH: Negative. ENDOCRINE: Negative. Objective - Vital Signs Vital signs: Vital Signs Temp 97.9 F 04/24/18 07:24 Pulse 67 04/24/18 07:24 Resp 16 04/24/18 07:24 BP 145/72 04/24/18 07:24 Pulse Ox 98 04/24/18 07:24 Intake & Output 04/23/18 04/24/18 04/24/18 18:59 06:59 18:59 Intake Total 951 1040 280 Output Total 40 Balance 911 1040 280 Weight 115.666 kg Intake: IV 951 Intake, IV Titration 560 Amount Lactated Ringers 1,000 ml 560 @ 70 mls/hr IV .[id number] Rx#:[id number] Oral 480 280 Output: Estimated Blood Loss 40 Other: # Voids 2 - Exam General Appearance: Alert, cooperative, no distress, appears stated age, mildly over Wt. ambulating in the hallway with walker and PT. Neck HEENT: Supple, no lymphadenopathy, no thyroid enlargement, no carotid bruits. Lungs: Clear to auscultation without crackles or wheezes no rhonchi, no deformity. Chest Wall: Chest wall normal expansion with deep inspiration no tenderness and no deformity was found on exam, no costochondral pain or discomfort. Heart: Regular rate and rhythm, S1, S2 normal, no murmur, rub or gallop. Back: Symmetric, no curvature, ROM normal, no CVA tenderness. Abdomen: Soft, non-tender, bowel sounds active all four quadrants, no masses, no organomegaly. Extremities: normal R side, atraumatic, no cyanosis or edema, L side surgery side with pain management system above the knee no redness or deformity no bleeding. Small dressing in place. Pulses: 2+ and symmetric. Skin: Skin color, texture, tugor normal, no rashes or lesions. Neurologic: Alert oriented x3 cranial nerves II through XII intact, no motor deficit, no abnormal balance or gait. - Labs CBC & Chem 7: 04/24/18 08:01 Assessment and Plan Plan: 1 post left total knee arthroplasty: Stable surgery went well, continue postsurgical protocol with GI, DVT and pulmonary protocol. Med reconsultation was done patient is very stable hemodynamically. 2 mild intermittent asthma: Continue his Ventolin and Symbicort also continue patient on Singulair. 3 hypertension: Has been on enalapril 7.5 mg a day and atenolol 25 daily resume both medication. 4 chronic edema: Has been on furosemide 20 mg a day resume medication tomorrow. 5 gout, chronic: No flareup lately has been on allopurinol 300 mg a day. 6 mild anxiety attacks: Has been on Xanax on as needed basis. 7 BPH: Watch for any urinary retention. 8 GERD/GI prophylaxis: Resume pantoprazole 40 mg daily. 8 DVT prophylaxis: Aspirin 325 mg twice daily CODE STATUS: Full code. Discharge plan: Home with [facility] Impression and plan of care have been directed as dictated by the signing physician. Brenna Riena nurse practitioner acting as scribe for signing physician.
[2018-04-24] MEDS ORDERED: MONTELUKAST 10 MG TAB PO SCH (16:00)
== END 2018-04-24 15:20 | disposition home health service (06) ==
LOC: OR 10:11 → 4SSUR 16:10 → OR 04-24 15:20
PROVIDERS: ATTEND Orthopaedic Surgery
DX: M17.12 Unilateral primary osteoarthritis, left knee (principal); M79.89 Other specified soft tissue disorders; I10 Essential (primary) hypertension; J45.998 Other asthma; E78.5 Hyperlipidemia, unspecified; K21.0 Gastro-esophageal reflux disease with esophagitis; E78.00 Pure hypercholesterolemia, unspecified; M1A.9XX0 Chronic gout, unspecified, without tophus (tophi); N40.0 Benign prostatic hyperplasia without lower urinary tract symptoms; H35.30 Unspecified macular degeneration; F41.9 Anxiety disorder, unspecified; R60.9 Edema, unspecified; Z79.82 Long term (current) use of aspirin; Z79.899 Other long term (current) drug therapy; Z88.0 Allergy status to penicillin; Z87.891 Personal history of nicotine dependence
CPT/HCPCS: 27447; 94640 ×2; 97161; 85025; 88300; 73560; 93971; C1776; C1713; C1772; J2250; J0171; J1100; J2405; J0690 ×3; J1885; J1650; J2795; J0735

== ENCOUNTER → 2021-02-02 | Outpatient (CLI) | payer MEDICARE ==
--- NOTE | 2021-02-03 06:55 | CT ---
EXAMINATION TYPE: CT cervical spine wo con DATE OF EXAM: 02/02/2021 COMPARISON: Outside Cervical spine x-ray January 21, 2021 and outside MRI cervical spine June 12, 2020 HISTORY: Cervical pain, no injury, right hand shakes CT DLP: 704.40 mGycm. Automated Exposure Control for Dose Reduction was Utilized. TECHNIQUE: CT scan of the cervical spine is obtained without contrast, axial images are obtained, sa gittal and coronal reformatted images are also reviewed. FINDINGS: Cervical spine is visualized in its entirety from C1 through upper thoracic levels, there i s grade 1 anterolisthesis C7 on T1 redemonstrated. Prevertebral soft tissue appears within normal li mits. The C1-C2 articulation is within normal limits on the coronal images. Vertebral body heights a re maintained. Large anterior bridging osteophytes redemonstrated. Mild disc space narrowing C6-C7 le paty. Spinal canal grossly preserved. Review of axial images at C3-C4 level shows uncovertebral facet degenerative changes causing moderate to advanced right greater than left bilateral neural foraminal narrowing. Axial images at C4-C5 level show uncovertebral facet spurring causing moderate to advanced left great er than right bilateral neural foraminal narrowing. Axial images at C5-C6 level show uncovertebral facet spurring causing moderate left greater than righ t bilateral neural foraminal narrowing. Axial images at C6-C7 level show uncovertebral facet spurring causing mild right and moderate left-si ded neural foraminal narrowing. Axial images at C7-T1 level show spondylolisthesis. Patent bilateral neural foramina. No significant new disc herniation. Smaller disc herniations are seen outside MRI. Thyroid gland appe ars within normal limits. Lung apices show no pneumothorax. IMPRESSION: Large bridging anterior osteophytes redemonstrated. Stable spondylolisthesis C7-T1. Multi level degenerative changes particularly uncovertebral facet arthropathy and spurring as detailed abov e contributing to multilevel bilateral neural foraminal narrowing.
--- NOTE | 2021-02-03 07:02 | CT ---
EXAMINATION TYPE: CT thoracic spine wo con DATE OF EXAM: 02/02/2021 COMPARISON: None. HISTORY: Thoracic pain no injury right hand shakes CT DLP: 2392.40 mGycm Automated exposure control for dose reduction was used. FINDINGS: There are large anterior bridging osteophytes along the course of the thoracic spine with preservatio n of disc space height. Osseous structures are diffusely demineralized. Alignment is satisfactory. Sp inal canal grossly preserved. Axial images show no large disc herniation. Incidental mild left basilar linear scarring. Moderate th ree-vessel coronary artery calcification is present. IMPRESSION: Findings consistent with DISH as detailed above. Alignment is satisfactory. No large disc herniation seen.
== END | disposition home or self-care (01) ==
LOC: RADCTMAIN 18:08
PROVIDERS: ATTEND Orthopaedic Surgery
DX: M43.13 Spondylolisthesis, cervicothoracic region (principal); M48.03 Spinal stenosis, cervicothoracic region; M48.14 Ankylosing hyperostosis [Forestier], thoracic region; M25.78 Osteophyte, vertebrae
CPT/HCPCS: 72125; 72128

== ENCOUNTER → 2021-02-11 | Outpatient (CLI) | payer MEDICARE ==
[2021-02-12 13:15] LABS: HLA B27 NEGATIVE
== END | disposition home or self-care (01) ==
LOC: LABWHC1 07:54
PROVIDERS: ATTEND Orthopaedic Surgery
DX: M54.2 Cervicalgia (principal)
CPT/HCPCS: 36415; 86812

== ENCOUNTER → 2021-02-11 | Outpatient (CLI) | payer MEDICARE | END | disposition home or self-care (01) | LOC: LABPAT 08:17 | PROVIDERS: ATTEND Orthopaedic Surgery | DX: Z01.812 Encounter for preprocedural laboratory examination (principal); M17.11 Unilateral primary osteoarthritis, right knee | CPT/HCPCS: 87070 ==

== ENCOUNTER → 2021-03-19 | Outpatient (CLI) | payer MEDICARE ==
[2021-03-19 13:51] LABS: Basophils # (A) 0.1 k/uL (0-0.2); Basophils % (A) 1 %; Eosinophils # (A) 0.2 k/uL (0-0.7); Eosinophils % (A) 2 %; HCT 48.9 % (39.0-53.0); HGB 16.4 gm/dL (13.0-17.5); Lymphocytes # (A) 2.5 k/uL (1.0-4.8); Lymphocytes % (A) 27 %; MCH 32.7 pg (25.0-35.0); MCHC 33.6 g/dL (31.0-37.0); MCV 97.4 fL (80.0-100.0); Mean Platelet Volume 7.8; Monocytes # (A) 0.6 k/uL (0-1.0); Monocytes % (A) 6 %; Neutrophils # (A) 5.8 k/uL (1.3-7.7); Neutrophils % (A) 63 %; Platelet Count 242 k/uL (150-450); RBC 5.02 m/uL (4.30-5.90); RDW 14.6 % (11.5-15.5); WBC 9.3 k/uL (3.8-10.6)
[2021-03-19 14:18] LABS: INR 0.9 (<1.2); Prothrombin Time 10.1 sec (9.0-12.0)
[2021-03-19 14:21] LABS: Potassium 5.1 mmol/L (3.5-5.1)
== END | disposition home or self-care (01) ==
LOC: LABPAT 11:47
PROVIDERS: ATTEND Orthopaedic Surgery
DX: Z01.812 Encounter for preprocedural laboratory examination (principal); M17.11 Unilateral primary osteoarthritis, right knee
CPT/HCPCS: 80051; 85025; 85610

== ENCOUNTER 2021-03-22 12:58 | Day surgery (SDC) | payer MEDICARE ==
[2021-03-17 14:47] VITALS: BMI 38.0
--- NOTE | 2021-03-21 16:45 | HP ---
HISTORY AND PHYSICAL DATE OF SURGERY: 03/22/2021 Marcos Ramirez is a 75-year-old gentleman seen with symptomatic right knee osteoarthritis. We discussed options for treatment. He elected to proceed with right total knee arthroplasty. Consent was obtained. Clearance was provided by Dr. Olivares. PAST MEDICAL HISTORY: Hypertension, hyperlipidemia, asthma. PAST SURGICAL HISTORY: Right knee arthroscopy, left total knee arthroplasty, herniorrhaphy, appendectomy. DAILY MEDICATIONS: Atenolol, enalapril, Singulair, Symbicort, albuterol, pantoprazole. ALLERGIES: PENICILLIN. SOCIAL HISTORY: He denies current tobacco use. PHYSICAL EVALUATION OF THE RIGHT KNEE: His range of motion is negative 3/4 to 115 degrees. There is a mild effusion. Tenderness, medial joint line. Crepitus along the medial patellofemoral compartments with range of motion. Pain with patellofemoral compression. Ligaments stable. Hip rotation without pain. Distal neurovascular exam is intact. RADIOGRAPHS: Right knee radiographs revealed severe osteoarthritic changes. IMPRESSION: 1. Right knee osteoarthritis. 2. Hypertension. 3. Asthma. PLAN: Right total knee arthroplasty. MMODL / IJN: [id number] /
[~2021-03-22 12:58] MED LIST changes: -ACETAMINOPHEN TAB 500 MG TAB PO ONE; +ACETAMINOPHEN TAB 500 MG TAB PO PRN; -FUROSEMIDE 20 MG TAB PO SCH; +HYDROmorphone 0.5 MG/0.5 ML SYRINGE IVP PRN; +LIDOCAINE 1% (10MG/ML) FOR IV START INTRADERMA PRN; -LIDOCAINE 1% 20 ML VIAL (10MG/ML) FOR IV START INTRADERMA PRN; -MELOXICAM 7.5 MG TAB PO ONE; +MELOXICAM 7.5 MG TAB PO PRN; +ROPIVACAINE/EPI/CLONIDINE/KET 50 ML SYRINGE MISCELLANE PRN; +TRANEXAMIC ACID 1,000 MG in SODIUM CHLORIDE 0.9% 100 ML IVPB PRN; -TRANEXAMIC ACID 1,000 MG in SODIUM CHLORIDE 0.9% 50 ML IVPB ONE; +ceFAZolin 3 GM in SODIUM CHLORIDE 0.9% 100 ML IVPB PRN; -fentaNYL (PF) 50 MCG/ML 2 ML AMP IV PRN
[2021-03-22] MEDS: LACTATED RINGERS 1,000 ML IV SCH (13:45)
[2021-03-22] MEDS ORDERED: ONDANSETRON 4 MG/2 ML VIAL ONE (13:49)
[2021-03-22] MEDS ORDERED: DEXAMETHASONE SOD PHOSPHATE 4 MG/ML 1 ML VIAL IV ONE (13:50)
[2021-03-22] MEDS ORDERED: fentaNYL (PF) 50 MCG/ML 2 ML AMP IV ONE (14:00)
[2021-03-22] MEDS ORDERED: ROPIVACAINE 5 MG/ML 30 ML VIAL ONE (15:30)
[2021-03-22] MEDS ORDERED: SODIUM CHLORIDE 0.9% 100 ML BAG ONE (15:30)
[2021-03-22] MEDS ORDERED: KETAMINE 10 MG/ML 20 ML VIAL ONE (15:30)
[2021-03-22] MEDS ORDERED: GLYCOPYRROLATE 0.2 MG/ML 2 ML VIAL ONE (15:30)
[2021-03-22] MEDS ORDERED: TRANEXAMIC ACID 1,000 MG/10 ML VIAL ONE (15:30)
[2021-03-22] MEDS ORDERED: PROPOFOL 10 MG/ML 20 ML VIAL IV ONE (15:30)
[2021-03-22] MEDS ORDERED: MIDAZOLAM 2 MG/2 ML VIAL ONE (15:30)
[2021-03-22] MEDS ORDERED: SODIUM CHLORIDE 0.9% (PF) 10 ML VIAL ONE (15:30)
[2021-03-22] MEDS ORDERED: fentaNYL (PF) 50 MCG/ML 2 ML AMP ONE (15:30)
[2021-03-22] MEDS ORDERED: ceFAZolin 1,000 MG in SODIUM CHLORIDE 0.9% 1,000 ML IRRIGATION ONE (16:11)
--- NOTE | 2021-03-22 16:15 | P.ANPRN ---
Procedure Note - Anesthesia - Nerve Block Performed Right Adductor Canal Infusion Time Out Performed: Yes Date of Procedure: 03/22/21 Procedure Start Time: 15:00 Procedure Stop Time: 15:13 Location of Patient: PreOp Indication: Acute Post-Operative Pain, Dx/Pain Location, Requested by Surgeon Specifically requested for management of pain by : Lorenzo Mackey Sedation Type: Sedate with meaningful contact maintained Preparation: Sterile Prep, Sterile Dressing Position: Supine Catheter Depth at Skin (cm): 7 Catheter: Indwelling Needle Types: Pajunk Needle Gauge: 18 Ultrasound used to visualize needle placement: Yes Ultrasound used to observe medication spread: Yes Injectate: 0.5% Ropivacaine (see comment for volume) Blood Aspirated: No Pain Paresthesia on Injection Noted: No Resistance on Injection: Normal Image Stored and Saved: Yes Events: Uneventful and Well Tolerated (20cc 0.5% ropivacaine)
--- NOTE | 2021-03-22 16:16 | P.ANPRN ---
Procedure Note - Anesthesia - Nerve Block Performed Right iPack Single Time Out Performed: Yes Date of Procedure: 03/22/21 Procedure Start Time: 15:14 Procedure Stop Time: 15:18 Location of Patient: PreOp Indication: Acute Post-Operative Pain, Dx/Pain Location, Requested by Surgeon Specifically requested for management of pain by DrNicho: Lorenzo Mackey Sedation Type: Sedate with meaningful contact maintained Preparation: Sterile Prep Position: Supine Catheter: None Needle Gauge: 21 Ultrasound used to visualize needle placement: Yes Ultrasound used to observe medication spread: Yes Injectate: 0.5% Ropivacaine (see comment for volume) Blood Aspirated: No Pain Paresthesia on Injection Noted: No Resistance on Injection: Normal Image Stored and Saved: Yes Events: Uneventful and Well Tolerated (10cc with 0.5% ropivacaine with 10cc NS)
[2021-03-22] MEDS ORDERED: LACTATED RINGERS 1,000 ML IV ONE ×2 (16:43)
[2021-03-22] MEDS ORDERED: NALOXONE 0.4 MG/ML 1 ML VIAL IV PRN (17:49)
[2021-03-22] MEDS ORDERED: HYDROmorphone 0.2 MG/1 ML SYRINGE IVP PRN (17:49)
[2021-03-22] MEDS ORDERED: HYDROcodone/APAP 5-325MG 1 EACH TAB PO PRN (17:49)
[2021-03-22] MEDS ORDERED: ONDANSETRON 4 MG/2 ML VIAL IVP PRN (17:49)
[2021-03-22] MEDS ORDERED: HYDROmorphone 0.5 MG/0.5 ML SYRINGE IVP PRN ×2 (17:49)
--- NOTE | 2021-03-22 17:49 | P.OP ---
Date of Procedure: 03/22/21 Preoperative Diagnosis: Right knee osteoarthritis Postoperative Diagnosis: Right knee osteoarthritis Procedure(s) Performed: Right total knee arthroplasty Implants: 1. Depuy attune size 7 right cruciate retaining cemented femur 2. Depuy attune size 7 fixed-bearing cemented tibial baseplate 3. Depuy attune size 7 fixed-bearing cruciate retaining 5 mm polyethylene tibial insert 4. Depuy attune 41 mm all polyethylene cemented patella Anesthesia: regional (Adductor canal catheter, Ipack block), spinal Surgeon: Lorenzo Mackey Er Physician #1: Saurav Charles Estimated Blood Loss (ml): 70 Pathology: other (Bone) Condition: stable Disposition: PACU Indications for Procedure: 75-year-old patient seen with symptomatic right knee osteoarthritis. After treatment options were discussed, he elected to proceed with total knee arthroplasty. Operative Findings: See description of procedure Description of Procedure: Patient was taken to the operative suite after having an adductor canal catheter placed by the department of anesthesia as well as and Ipack block for postoperative pain management.. Patient underwent a spinal anesthetic by the department of anesthesia. Patient was given preoperative IV intake antibiotics and TXA. A well-padded tourniquet was placed about the right lower extremity. The lower extremity was then prepped and draped in the normal sterile orthopedic fashion. The extremity was elevated, a tourniquet was insufflated to 300. A standard anterior incision was made sharply through skin. Dissection was taken down through the subcutaneous soft tissues down to the extensor mechanism. A medial arthrotomy was performed, patella was everted and knee was flexed. There was advanced osteoarthritis noted. I introduced my distal intramedullary femoral drill. I then introduced the distal femoral cutting jig. Yao FLOR secured the cutting jig with 2 pins. I held retractors in position while Yao FLOR performed the distal femoral resection through the guide area we now removed her distal femoral cutting guide. We now placed our 4-in-1 femoral cutting block and positioned and it was secured with 2 pins by Yao FLOR wh ile I held the block in position. The distal femoral finishing was now completed. A proximal tibial cutting guide was positioned. I held the guide in the appropriate position with both hands well Yao FLOR inserted stabilizing pins into the guide. Proximal tibial cut was made. We now placed a trial femoral component into position, along with an appropriate size tibial tray and insert. We now took the knee through range of motion and had full extension good flexion and good overall soft tissue balance noted. The patella was everted and stabilized with 2 towel clips held by Yao FLOR while I performed a flush with patellar quad tendon utilizing a fresh sawblade. We templated the patella, appropriate drill holes were made. An appropriate trial patella was positioned, knee was taken through full range of motion with the patella tracking very nicely. The trial patella was removed. Drill holes were made through the femoral component. All trial components were removed after marking off the appropriate rotation of the tibia. Retractors were now positioned along the proximal tibia. An appropriate keel punch was made with the appropriate size tibial guide by myself on Yao FLOR assisted by holding retractors. At this point appropriate size implants were chosen and opened. The joint was irrigated copiously with pulse lavage mechanical irrigation. The posterior capsule was infiltrated with local analgesic. The wound was irrigated with pulse lavage mechanical irrigation. We mixed antibiotic methylmethacrylate. We placed the knee into flexion. We placed multiple retractors assisted by Yao FLOR to expose the proximal tibia. Once the methyl methacrylate was ready, the tibial component was cemented into place removing any excess methylmethacrylate form by both myself and Yao FLOR. The femoral component was cemented into place removing the removing any excess methylmethacrylate performed by both myself and Yao FLOR. We then inserted the appropriate size polyethylene tibial insert. We made sure that it was locked into position. We took the knee into full extension, and then back in a flexion making sure we had removed any excess methylmethacrylate. The patellar component was then cemented down and secured with clamp. Excess methylmethacrylate removed. We kept the knee in full extension, patellar clamp in position until methylmethacrylate had hardened. Once it had hardened the patellar clamp was removed. The knee was taken through full range of motion. The patella tracked nicely. There was good soft tissue balancing. The tourniquet was now released. Additional hemostasis was achieved via electrocautery. A second gram of TXA was given. The wound again was irrigated with pulse lavage mechanical irrigation. The superficial soft tissues were infiltrated local analgesic. The extensor mechanism was repaired with Ethibond. We checked the repair with range of motion and it was stable. The subcutaneous soft tissues were repaired with Vicryl in layers. The skin was approximated with pernio/Dermabond. Sterile dressings were applied followed by loose web roll and Agustin bandage. The patient was transferred to a bed, and taken to recovery in stable and satisfactory condition. Yao FLOR assisted with this complex procedure.
[2021-03-22] MEDS ORDERED: SODIUM CHLORIDE 0.9% 1,000 ML IV SCH (18:00)
[2021-03-22] MEDS ORDERED: ROPIVACAINE 0.2%-NS ON-Q PUMP 1,090 MG, EMPTY PAIN BALL 1 EACH MISCELLANE PRN (18:20)
[2021-03-22] MEDS ORDERED: ALPRAZolam 0.5 MG TAB PO PRN (19:24)
--- NOTE | 2021-03-22 19:25 | XR ---
Result: History: Postoperative knee. Comparison: 01/08/2021. Technique: 2 views of the right knee. Findings: There are postsurgical changes of total knee arthroplasty with patellar resurfacing without evidence of immediate hardware complication. No acute fracture or dislocation of is seen. There are postsurgi michelle changes about the knee soft tissues with joint effusion. Impression: Expected post surgical changes of right total knee arthroplasty.
[2021-03-22] MEDS ORDERED: SENNOSIDES-DOCUSATE SODIUM 1 EACH TAB PO SCH (21:00)
[2021-03-22] MEDS: HYDROcodone/APAP 7.5-325MG 1 EACH TAB PO PRN (21:19)
[2021-03-22] MEDS: SYMBICORT 160-4.5 MCG INHALER INHALATION SCH (21:21)
[2021-03-22] MEDS: VIT A,C & E-LUTEIN-MINERALS 1 EACH TAB PO SCH (22:30)
[2021-03-22] MEDS: ceFAZolin 3 GM in SODIUM CHLORIDE 0.9% 100 ML IVPB SCH (23:27)
[2021-03-23] MEDS: LACTATED RINGERS 1,000 ML IV SCH (02:09)
--- NOTE | 2021-03-23 06:50 | P.PN ---
Progress Note - Text Progress Note Date: 03/23/21 Pt seen and examined at bedside POD 1 from total knee arthroplasty. Patient received adductor canal catheter infusion for pain relief. Patient reports pain is adequately controlled with pump and oral pain medicine. Patient has been up walking around and sitting in the chair. Patient denies LOMELI, N/V, fever, chills, dizziness. Procedure site is clean and dry. Continue infusion until medicine is complete.
[2021-03-23] MEDS ORDERED: ENOXAPARIN 30 MG/0.3 ML SYRINGE SQ SCH (07:00)
[2021-03-23 07:02] LABS: Glucose,Whole Blood 133 mg/dL (75-99)
[2021-03-23] MEDS ORDERED: PANTOPRAZOLE 40 MG TABLET PO SCH (07:30)
[2021-03-23] MEDS: SYMBICORT 160-4.5 MCG INHALER INHALATION SCH (07:35)
[2021-03-23] MEDS: ceFAZolin 3 GM in SODIUM CHLORIDE 0.9% 100 ML IVPB SCH (08:18)
[2021-03-23] MEDS: HYDROcodone/APAP 7.5-325MG 1 EACH TAB PO PRN (08:19)
[2021-03-23] MEDS: VIT A,C & E-LUTEIN-MINERALS 1 EACH TAB PO SCH (08:19)
[2021-03-23 08:30] VITALS: BP 149/70; PULSE 66; RESP 18; TEMP 97.6
[2021-03-23] MEDS ORDERED: atenoloL 25 MG TAB PO SCH (09:00)
[2021-03-23] MEDS ORDERED: allopurinoL 300 MG TAB PO SCH (09:00)
[2021-03-23] MEDS ORDERED: CHOLECALCIFEROL 25 MCG (1000 IU) TABLET PO SCH (09:00)
[2021-03-23] MEDS ORDERED: lisinopriL 20 MG TAB PO SCH (09:00)
[2021-03-23] MEDS ORDERED: ASCORBIC ACID 500 MG TAB PO SCH (09:00)
--- NOTE | 2021-03-23 10:22 | P.DS ---
Providers Date of admission: 03/22/2021 Expected date of discharge: 03/23/21 Attending physician: Lorenzo Mackey Consults: 03/22/21 17:49 Consult Physician Routine Consulting Provider: Elaina Olivares Consult Reason/Comments: Medical management Do you want consulting provider notified?: Yes Primary care physician: Elaina Olivares Hospital Course: Date of admission: 03/22/2021 Date of discharge: 03/23/2021 Admission diagnosis: Right knee osteoarthritis Discharge diagnosis: Same Attending physician: Dr. Mackey Surgical procedures: Right total knee arthroplasty Brief history: Patient is a 75-year-old male with a history of progressive primary right knee osteoarthritis. At this point patient has failed conservative treatment measures and has opted to proceed with a elective right total knee arthroplasty. Hospital course: Details of patient's surgery can be found in operative report. Patient tolerated the procedure well and was subsequently transported to orthopedic floor. Patient's orthopeidc and medical care was provided daily. Patient had daily laboratory tests performed for evaluation of overall blood cou nts. Patient had daily physical therapy to include strengthening range of motion as well as education with walker ambulation. Patient was treated with Lovenox for their postoperative DVT prophylaxis during their inpatient stay. Patient was noted to have a relatively uneventful postoperative course. Patient reported satisfactory pain control with oral pain medications by postoperative day 1. Patient showed satisfactory progress with physical therapy. Patient moved steadily through the program and had no difficulty meeting the goals by postoperative day 1. Given patient's otherwise satisfactory course and having met physical therapy goals, plan is to discharge patient home on postoperative day 1. Discharge condition/disposition: Patient will be discharged home in stable condition. Discharge medications: Instructions are given on resumption of patient's normal daily medications per primary care recommendation, in addition patient will be prescribed [place] 7.5 mg/325 mg; Senna ; patient to resume home medications aspirin 325 mg for DVT prophylaxis. Discharge instructions: 1. Wound care and infection precautions, keep incision dry and covered while showering, no lotions, creams, moisturizers. No soaking, tubs, pools, hottubs. Do not scrub over the incision. 2. Weight-bear as tolerated with walker / cane until follow-up. 3. Ice and elevate when necessary. Do not exceed 20 minutes per hour with ice pack. 4. Utilize compression sleeve until seen at first follow up appointment. 5. Visiting nursing care. 6. Home physical therapy including home CPM. 7. Pain meds and anticoagulants per prescription. 8. Pain medication has potential to cause constipation. Increase oral fluid and fiber intake. Contact primary care provider if you have not had a bowel movement within 48 hours after discharge 9. No anti-inflammatory medication until discussed at first post operative visit, this including Motrin, Aleve, Mobic, Diclofenac. 10. Follow up in office at 2 weeks postop with Yao Charles PA-C / Garrett Hartman PA-C 11. Follow up with your primary care doctor 7-10 days after discharge. 12. Contact [facility] with any questions, . Keep silver foam dressing on for 5-7 days. While showering, cover silver foam dressing with Saran wrap. Assessment: Right knee osteoarthritis Procedures: Right total knee arthroplasty Patient Condition at Discharge: Good Plan - Discharge Summary Discharge Rx Participant: Yes New Discharge Prescriptions: New Sennosides-Docusate Sodium [Senokot-S] 2 each PO HS tab HYDROcodone/APAP 7.5-325MG [[place] 7.5] 1 each PO Q6HR PRN #36 tab PRN Reason: Pain Continue Ascorbic Acid [Vitamin C] 500 mg PO DAILY ALPRAZolam [Xanax] 0.5 mg PO BID PRN PRN Reason: Anxiety Allopurinol [Zyloprim] 300 mg PO DAILY Enalapril [Vasotec] 10 mg PO DAILY Budesonide-Formot 160-4.5 Mcg [Symbicort 160-4.5 Mcg Inhaler] 1 puff INHALATION BID Montelukast Sodium [Singulair] 10 mg PO 1600 atenoloL 25 mg PO DAILY Vit C/E/Zn/Coppr/Lutein/Zeaxan [Preservision Areds 2 Softgel] 1 each PO BID Furosemide [Lasix] 40 mg PO DAILY Aspirin 325 mg PO DAILY Potassium Chloride ER [K-Dur 10] 10 meq PO DAILY Cholecalciferol [Vitamin D3 (25 Mcg = 1000 Iu)] 25 mcg PO DAILY Omeprazole [PriLOSEC] 20 mg PO AC-BRKFST Discharge Medication List ALPRAZolam [Xanax] 0.5 mg PO BID PRN 06/16/17 [History] Allopurinol [Zyloprim] 300 mg PO DAILY 06/16/17 [History] Ascorbic Acid [Vitamin C] 500 mg PO DAILY 06/16/17 [History] Budesonide-Formot 160-4.5 Mcg [Symbicort 160-4.5 Mcg Inhaler] 1 puff INHALATION BID 06/16/17 [History] Enalapril [Vasotec] 10 mg PO DAILY 06/16/17 [History] Furosemide [Lasix] 40 mg PO DAILY 06/16/17 [History] Montelukast Sodium [Singulair] 10 mg PO 1600 06/16/17 [History] Vit C/E/Zn/Coppr/Lutein/Zeaxan [Preservision Areds 2 Softgel] 1 each PO BID 06/16/17 [History] atenoloL 25 mg PO DAILY 06/16/17 [History] Aspirin 325 mg PO DAILY 03/17/21 [History] Cholecalciferol [Vitamin D3 (25 Mcg = 1000 Iu)] 25 mcg PO DAILY 03/17/21 [History] Omeprazole [PriLOSEC] 20 mg PO AC-BRKFST 03/17/21 [History] Potassium Chloride ER [K-Dur 10] 10 meq PO DAILY 03/17/21 [History] HYDROcodone/APAP 7.5-325MG [[place] 7.5] 1 each PO Q6HR PRN #36 tab 03/23/21 [Rx] Sennosides-Docusate Sodium [Senokot-S] 2 each PO HS tab 03/23/21 [Rx] Follow up Appointment(s)/Referral(s): Elaina Olivares MD [Primary Care Provider] - 2 Weeks Saurav Charles PAC [PHYSICIAN VICE PRESIDENT OF COMMUNICATIONS] - 2 Weeks Patient Instructions/Handouts: Knee Replacement (GEN) Activity/Diet/Wound Care/Special Instructions: Discharge instructions: 1. Wound care and infection precautions, keep incision dry and covered while showering, no lotions, creams, moisturizers. No soaking, tubs, pools, hottubs. Do not scrub over the incision. 2. Weight-bear as tolerated with walker / cane until follow-up. 3. Ice and elevate when necessary. Do not exceed 20 minutes per hour with ice pack. 4. Utilize compression sleeve until seen at first follow up appointment. 5. Visiting nursing care. 6. Home physical therapy including home CPM. 7. Pain meds and anticoagulants per prescription. 8. Pain medication has potential to cause constipation. Increase oral fluid and fiber intake. Contact primary care provider if you have not had a bowel movement within 48 hours after discharge 9. No anti-inflammatory medication until discussed at first post operative visit, this including Motrin, Aleve, Mobic, Diclofenac. 10. Follow up in office at 2 weeks postop with Yao Charles PA-C / Garrett Hartman PA-C 11. Follow up with your primary care doctor 7-10 days after discharge. 12. Contact [facility] with any questions, . Keep silver foam dressing on for 5-7 days. While showering, cover silver foam dressing with Saran wrap. Discharge Disposition: HOME WITH HOME HEALTH SERVICES
[2021-03-23 11:17] LABS: Basophils # (A) 0.02 X 10*3/uL (0.00-0.10); Basophils % (A) 0.1 %; Eosinophils # (A) 0 X 10*3/uL (0.04-0.35); Eosinophils % (A) 0 %; HCT 47.1 % (39.6-50.0); HGB 15.1 g/dL (13.0-17.0); Lymphocytes # (A) 1.39 X 10*3/uL (0.90-5.00); MCH 31.6 pg (27.0-32.0); MCHC 32.1 g/dL (32.0-37.0); MCV 98.5 fL (80.0-97.0); Monocytes # (A) 1.11 X 10*3/uL (0.20-1.00); Monocytes % (A) 7.2 %; Neutrophils # (A) 12.84 X 10*3/uL (1.80-7.70); Platelet Count 207 X 10*3/uL (140-440); RBC 4.78 X 10*6/uL (4.40-5.60); RDW 14.1 % (11.5-14.5); WBC 15.47 X 10*3/uL (4.50-10.00)
--- NOTE | 2021-03-23 12:18 | P.PN ---
Subjective Progress Note Date: 03/23/21 Principal diagnosis: Right total knee arthroplasty Patient seen at bedside this morning resting comfortably sitting in chair icing knee. Patient says he is doing well this morning got up with physical therapy earlier. Patient says he walked down the [place] and up-and-down a couple steps. Patient says he does have some knee pain mostly at the backside of his knee. He says ice has helped some of the pain. Patient says he is ready to home today. Patient denies chest pain, fever, shortness breath, nausea, vomiting, change in vision, loss loss of bladder control. Objective - Vital Signs Vital signs: Vital Signs Temp 97.6 F 03/23/21 08:00 Pulse 66 03/23/21 08:00 Resp 18 03/23/21 08:00 BP 149/70 03/23/21 08:00 Pulse Ox 98 03/23/21 08:00 Intake & Output 03/22/21 03/23/21 03/23/21 18:59 06:59 18:59 Intake Total 1801 0 Output Total 70 Balance 1731 0 Weight 123.9 kg 123.9 kg Intake: IV 1801 0 Output: Estimated Blood Loss 70 Other: # Voids 2 # Bowel Movements 0 - Exam Right knee: Incision is clean, dry, and intact. The silver foam dressing is in good condition. There is minimal soft tissue swelling and ecchymosis surrounding the medial and lateral aspects of the incision. Calf is soft, no tenderness with palpation. Plantar flexion, dorsiflexion, EHL, FHL are intact. Sensory exam to light touch throughout the extremity is intact, dorsal pedis pulses 2+. - Labs CBC & Chem 7: 03/23/21 05:47 Labs: Abnormal Lab Results - Last 24 Hours (Table) 03/23/21 Range/Units 07:00 POC Glucose (mg/dL) 133 H (75-99) mg/dL Assessment and Plan Assessment: Postoperative day 1 status post right total knee arthroplasty Plan: 1. Right knee osteoarthritis - right total knee/from yesterday, 03/22/2021. Patient stable at bedside this morning. Plan to discharge home today with health services 2. Appreciate medical management 3. Pain management - going home with [place] 7.5 mg/325 mg 4. DVT prophylaxis - Lovenox in hospital. Patient to resume aspirin 325 mg at home 5. GI prophylaxis - senna 6. PT/OT - weightbearing as tolerated with walker for assistance 7. Encourage incentive spirometer use 8. Discharge planning - discharge home today with health services Time with Patient: Less than 30
[2021-03-23] MEDS ORDERED: MONTELUKAST 10 MG TAB PO SCH (16:00)
--- NOTE | 2021-03-24 18:40 | P.CONS ---
History of Present Illness - Reason for Consult Consult date: 03/22/21 medical management Requesting physician: Lorenzo Mackey - Chief Complaint right total knee arthroplasty - History of Present Illness HISTORY OF PRESENT ILLNESS: This is a 76-year-old white [place] male with a previous medical history significant for hypertension and hypertensive cardiovascular disease, hyperlipidemia, history of gout, history of degenerative disc disease of the cervical spine as well as lumbar spine, history of osteoarthritis, underwent right total knee arthroplasty that was done successfully by Dr. Mackey and we are asked to see him for medical management. Patient is laying down in bed in no current distress his was at the bedside, patient denies any chest pain at this time or shortness breath, he complains of a dry mouth, his eating the first meal and 24 hours, he does not feel any nausea or vomiting at this time, his pain is well controlled, he has no unusual symptoms at this time. REVIEW OF SYSTEMS: Constitutional: No documented fever, no chills, no night sweats. No weight change. No weakness, fatigue or lethargy. No daytime sleepiness. HEENT: No headache. No blurred vision or double vision, no loss of vision. [address] of Hearing, no ringing in the ears, no dizziness. No nasal drainage or congestion. No epistaxis. No sore throat. Lungs: No shortness of breath, no cough, no sputum production. No wheezing. Re ports dyspnea with activity. Cardiovascular: No chest pain, no lower extremity edema. No palpitations. No paroxysmal nocturnal dyspnea. No orthopnea. No lightheadedness or dizziness. No syncopal episodes. Abdominal: Reports no abdominal pain. No nausea, vomiting. No diarrhea. No constipation. No bloody or tarry stools reports loss of appetite. Genitourinary: No dysuria, increased frequency, urgency. No urinary retention. Musculoskeletal: No myalgias. No muscle weakness, no gait dysfunction, no frequent falls. No back pain. No neck pain. Integumentary: No wounds, no lesions. No rash or pruritus. No unusual bruising. No change in hair or nails. Neurologic: No aphasia. No facial droop. No change in mentation. No head injury. No headache. No paralysis. No paresthesia. Psychiatric: No depression. No anxiety. No mood swings. Endocrine: No abnormal blood sugars. No weight change. PAST MEDICAL HISTORY: Hypertension and hypertensive cardiovascular disease. Hyperlipidemia. Gout. Osteoarthritis. Obesity. GERD. 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 Tremor. Anxiety. PAST SURGICAL HISTORY: Left total knee arthroplasty 2017. Appendectomy 1974. Left hernia repair 1995. Umbilical hernia repair 2009 Right arthroscopic knee surgery 2002 SOCIAL HISTORY: Patient smoked about a pack every day since he was 12-year-old and he quit 06/02/1967, patient drinks occasionally he denies any drug use or abuse. He denies any marijuana use. FAMILY HISTORY: Father at the age of 59 from diabetes complication, mother at age of 67 from renal failure and diabetes complications, patient had one brother who at age of 62 from lung cancer patient had 3 sisters one from rheumatic fever and heart attack one is okay and 1 the other sister who is half a sister. Patient has 2 sons no major medical problems. PHYSICAL EXAMINATION: General: 76-year-old male laying down in bed in no apparent distress. HEENT: Head is atraumatic, normocephalic, pupils were equal round reactive to light and recommendation, extraocular muscle movement were intact, sclera nonicteric, conjunctivae were pale, mucous membranes of the mouth are somewhat dry. Neck: Supple, no JVP, normal carotid upstroke bilaterally, no lymphadenopathy. Chest: Decreased breath sounds at the bases, few rhonchi, no extremity wheezes, no chest wall tenderness, no intercostal retractions. Heart: First heart sound is normal, second heart sounds normal there is systolic ejection murmur 2/6 located in the left sternal border Abdomen: Soft, nontender, nondistended, positive bowel sounds. Extremities: There is no edema no calf tenderness DP +2 bilaterally, right knee is wrapped with an Agustin wrap, there is on Q pump in place. Neurologic examination: Patient is awake alert and oriented X3, cranial nerves II-12 appear grossly intact, muscle power were 5 out of 5 in upper extremities and 5 out of 5 in bilateral lower extremities, deep tendon reflexes normal bilaterally. ASSESSMENT AND PLAN: 1. Postoperative day #0 status post right total knee arthroplasty. Patient was instructed to use the incentive spirometer to reduce the incidence of atelectasis and healthcare associated pneumonia, physical therapy evaluation tomorrow morning, patient will likely be discharged home in the morning with home PT. 2. Hypertension and hypertensive cardiovascular disease. Continue patient on atenolol 25 mg orally once every day, enalapril 10 mg orally twice every day, monitor the patient blood pressure very closely. 3. Hyperlipidemia. Continue patient on low-cholesterol diet. 4. Gout. Continue patient on allopurinol 300 mg orally once every day. 5. GERD. Continue patient on omeprazole 40 mg orally once every day. 6. COPD. Continue patient on Symbicort 160/4.5 MCG 2 puffs inhalation twice every day, continue Ventolin HFA 2 puffs inhalation every 4 hours as needed. Was instructed to use the incentive spirometer. 7. Enlarged prostate. Monitor for urinary retention. 8. Osteoarthritis. Continue current pain management. 9. ALLERGIC rhinitis. Continue patient on singular 10 mg at bedtime. 10. DVT prophylaxis. Continue patient on aspirin 81 mg twice every day for one month. 11. GI prophylaxis. Continue patient on PPI. 12. Thank you Dr. Mackey for allowing me to participate in the care of your patient we will follow the patient along with you. Past Medical History Past Medical History: Asthma, GERD/Reflux, Osteoarthritis (OA) Additional Past Medical History / Comment(s): MACULAR DEGENERATION History of Any Multi-Drug Resistant Organisms: None Reported Past Surgical History: Appendectomy, Heart Catheterization, Hernia Repair Additional Past Surgical History / Comment(s): ARTHROSCOPIC RIGHT AND LEFT KNEE, BILATERAL WRIST SURGERY, LEFT HAND -JOINT SURGERY, BRONCHOSCOPY , UMBICAL HERNIA REPAIR , CATARACT SURGERY-BILATERAL Past Anesthesia/Blood Transfusion Reactions: No Reported Reaction Additional Past Alcohol Use History / Comment(s): STARTED SMOKING AT AGE 14 QUIT 1968 SMOKED 1PPD - Past Family History Mother Family Medical History: No Reported History Medications and Allergies Home Medications Medication Instructions Recorded Confirmed Type ALPRAZolam [Xanax] 0.5 mg PO BID PRN 06/16/17 03/17/21 History Allopurinol [Zyloprim] 300 mg PO DAILY 06/16/17 03/17/21 History Ascorbic Acid [Vitamin C] 500 mg PO DAILY 06/16/17 03/17/21 History Budesonide-Formot 160-4.5 Mcg 1 puff INHALATION BID 06/16/17 03/17/21 History [Symbicort 160-4.5 Mcg Inhaler] Enalapril [Vasotec] 10 mg PO DAILY 06/16/17 03/17/21 History Furosemide [Lasix] 40 mg PO DAILY 06/16/17 03/17/21 History Montelukast Sodium [Singulair] 10 mg PO 1600 06/16/17 03/17/21 History Vit C/E/Zn/Coppr/Lutein/Zeaxan 1 each PO BID 06/16/17 03/17/21 History [Preservision Areds 2 Softgel] atenoloL 25 mg PO DAILY 06/16/17 03/17/21 History Aspirin 325 mg PO DAILY 03/17/21 03/17/21 History Cholecalciferol [Vitamin D3 (25 25 mcg PO DAILY 03/17/21 03/17/21 History Mcg = 1000 Iu)] Omeprazole [PriLOSEC] 20 mg PO AC-BRKFST 03/17/21 03/17/21 History Potassium Chloride ER [K-Dur 10] 10 meq PO DAILY 03/17/21 03/17/21 History Cephalexin [Keflex] 500 mg PO Q6HR 10 Days #40 cap 03/23/21 Rx HYDROcodone/APAP 7.5-325MG [[place] 1 each PO Q6HR PRN #36 tab 03/23/21 Rx 7.5] Sennosides-Docusate Sodium 2 each PO HS tab 03/23/21 Rx [Senokot-S] Allergies Allergy/AdvReac Type Severity Reaction Status Date / Time Penicillins Allergy Rash/Hives Verified 03/22/21 13:28 Physical Exam Vitals: Vital Signs Temp Pulse Pulse Resp BP BP Pulse Ox 03/22/21 19:18 64 16 131/67 97 03/22/21 19:02 64 16 122/69 97 03/22/21 18:47 61 16 124/69 97 03/22/21 18:31 59 L 16 134/69 97 03/22/21 18:16 61 16 132/70 97 03/22/21 18:13 97.1 F L 61 16 131/70 96 03/22/21 14:15 58 L 16 123/56 96 03/22/21 13:45 97.2 F L 58 L 16 139/73 98 Intake and Output 03/22/21 03/22/21 03/22/21 06:59 14:59 22:59 Intake Total 300 1501 Output Total 70 Balance 300 1431 Intake: IV 300 1501 Output: Estimated Blood Loss 70 Other: Weight 123.9 kg Results CBC & Chem 7: 03/23/21 05:47
--- NOTE | 2021-03-24 18:42 | P.PN ---
Subjective Progress Note Date: 03/23/21 HISTORY OF PRESENT ILLNESS: This is a 76-year-old white [place]cu[place] male with a previous medical history sig nificant for hypertension and hypertensive cardiovascular disease, hyperlipidemia, history of gout, history of degenerative disc disease of the cervical spine as well as lumbar spine, history of osteoarthritis, underwent right total knee arthroplasty that was done successfully by Dr. Mackey and we are asked to see him for medical management. Patient is laying down in bed in no current distress his was at the bedside, patient denies any chest pain at this time or shortness breath, he [place] of a dry mouth, his eating the first meal and 24 hours, he does not feel any nausea or vomiting at this time, his pain is well controlled, he has no unusual symptoms at this time. 03/23 : Patient is sitting up in chair in no apparent distress, he went to the bathroom orally, he's had a bowel movement, he denies any chest pain or shortness breath, he is using a walker for ablation, his pain is well- controlled, patient will likely be stable to be discharged home today if okay with orthopedic surgery. REVIEW OF SYSTEMS: Constitutional: No documented fever, no chills, no night sweats. No weight change. No weakness, fatigue or lethargy. No daytime sleepiness. HEENT: No headache. No blurred vision or double vision, no loss of vision. hard of Hearing, no ringing in the ears, no dizziness. No nasal drainage or congestion. No epistaxis. No sore throat. Lungs: No shortness of breath, no cough, no sputum production. No wheezing. Reports dyspnea with activity. Cardiovascular: No chest pain, no lower extremity edema. No palpitations. No paroxysmal nocturnal dyspnea. No orthopnea. No lightheadedness or dizziness. No syncopal episodes. Abdominal: Reports no abdominal pain. No nausea, vomiting. No diarrhea. No constipation. No bloody or tarry stools reports loss of appetite. Genitourinary: No dysuria, increased frequency, urgency. No urinary retention. Musculoskeletal: No myalgias. No muscle weakness, no gait dysfunction, no frequent falls. No back pain. No neck pain. Integumentary: No wounds, no lesions. No rash or pruritus. No unusual bruising. No change in hair or nails. Neurologic: No aphasia. No facial droop. No change in mentation. No head injury. No headache. No paralysis. No paresthesia. Psychiatric: No depression. No anxiety. No mood swings. Endocrine: No abnormal blood sugars. No weight change. PHYSICAL EXAMINATION: General: 76-year-old male laying down in bed in no apparent distress. HEENT: Head is atraumatic, normocephalic, pupils were equal round reactive to light and recommendation, extraocular muscle movement were intact, sclera nonicteric, conjunctivae were pale, mucous membranes of the mouth are somewhat dry. Neck: Supple, no JVP, normal carotid upstroke bilaterally, no lymphadenopathy. Chest: Decreased breath sounds at the bases, few rhonchi, no extremity wheezes, no chest wall tenderness, no intercostal retractions. Heart: First heart sound is normal, second heart sounds normal there is systolic ejection murmur 2/6 located in the left sternal border Abdomen: Soft, nontender, nondistended, positive bowel sounds. Extremities: There is no edema no calf tenderness DP +2 bilaterally, right knee is wrapped with an Agustin wrap, there is on Q pump in place. Neurologic examination: Patient is awake alert and oriented X3, cranial nerves II-12 appear grossly intact, muscle power were 5 out of 5 in upper extremities and 5 out of 5 in bilateral lower extremities, deep tendon reflexes normal bilaterally. ASSESSMENT AND PLAN: 1. Postoperative day #1 status post right total knee arthroplasty. Patient was instructed to use the incentive spirometer to reduce the incidence of atelectasis and healthcare associated pneumonia, physical therapy evaluation tomorrow morning, patient will likely be discharged home in the morning with home PT. 2. Hypertension and hypertensive cardiovascular disease. Continue patient on atenolol 25 mg orally once every day, enalapril 10 mg orally twice every day, monitor the patient blood pressure very closely. 3. Hyperlipidemia. Continue patient on low-cholesterol diet. 4. Gout. Continue patient on allopurinol 300 mg orally once every day. 5. GERD. Continue patient on omeprazole 40 mg orally once every day. 6. COPD. Continue patient on Symbicort 160/4.5 MCG 2 puffs inhalation twice every day, continue Ventolin HFA 2 puffs inhalation every 4 hours as needed. Was instructed to use the incentive spirometer. 7. Enlarged prostate. Monitor for urinary retention. 8. Osteoarthritis. Continue current pain management. 9. ALLERGIC rhinitis. Continue patient on singular 10 mg at bedtime. 10. DVT prophylaxis. Continue patient on aspirin 81 mg twice every day for one month. 11. GI prophylaxis. Continue patient on PPI. 12. Medically stable for discharge home Objective - Vital Signs Vital signs: Vital Signs Temp 97.6 F 03/23/21 08:00 Pulse 66 03/23/21 08:00 Resp 18 03/23/21 08:00 BP 149/70 03/23/21 08:00 Pulse Ox 98 03/23/21 08:00 - Labs CBC & Chem 7: 03/23/21 05:47
== END 2021-03-23 12:02 | disposition home health service (06) ==
LOC: OR 12:58 → 4SSUR 18:13 → OR 03-23 12:02
PROVIDERS: ATTEND Orthopaedic Surgery
DX: M17.11 Unilateral primary osteoarthritis, right knee (principal); I10 Essential (primary) hypertension; E78.5 Hyperlipidemia, unspecified; J45.909 Unspecified asthma, uncomplicated; Z98.890 Other specified postprocedural states; Z20.822 Contact with and (suspected) exposure to COVID-19; Z90.49 Acquired absence of other specified parts of digestive tract; M10.9 Gout, unspecified; E03.9 Hypothyroidism, unspecified; Z87.891 Personal history of nicotine dependence; K21.9 Gastro-esophageal reflux disease without esophagitis; Z96.652 Presence of left artificial knee joint; E66.9 Obesity, unspecified; Z68.39 Body mass index [BMI] 39.0-39.9, adult; R25.1 Tremor, unspecified; Z79.51 Long term (current) use of inhaled steroids; Z79.899 Other long term (current) drug therapy; Z79.82 Long term (current) use of aspirin; Z88.0 Allergy status to penicillin
CPT/HCPCS: 94640 ×2; 97161; 64999; 64448; 76942; 85025; 88300; 87635; 73560; 27447; C1776; C1713 ×2; J2250; J1100; J0690 ×3; J2405; J3010; J1650; J2795 ×2; J2704

== ENCOUNTER 2021-03-28 16:55 | Emergency (ER) | payer MEDICARE ==
--- NOTE | 2021-03-28 18:00 | ED ---
General Adult HPI - General Stated complaint: R Leg Cellulitis - History of Present Illness Initial comments: Marcos is a pleasant 76yo M who presents tot ER today via private vehicle for evaluation of RLE redness and swelling. Patient had right knee replacement with Dr Bertrand on Monday, he was negative for COVID-19 at that time. No fevers, chills, nausea or vomiting. Patient is scheduled for follow up with Dr Craven on Apr 09 - Related Data Home Medications Medication Instructions Recorded Confirmed ALPRAZolam [Xanax] 0.5 mg PO BID PRN 06/16/17 03/17/21 Allopurinol [Zyloprim] 300 mg PO DAILY 06/16/17 03/17/21 Ascorbic Acid [Vitamin C] 500 mg PO DAILY 06/16/17 03/17/21 Budesonide-Formot 160-4.5 Mcg 1 puff INHALATION BID 06/16/17 03/17/21 [Symbicort 160-4.5 Mcg Inhaler] Enalapril [Vasotec] 10 mg PO DAILY 06/16/17 03/17/21 Furosemide [Lasix] 40 mg PO DAILY 06/16/17 03/17/21 Montelukast Sodium [Singulair] 10 mg PO 1600 06/16/17 03/17/21 Vit C/E/Zn/Coppr/Lutein/Zeaxan 1 each PO BID 06/16/17 03/17/21 [Preservision Areds 2 Softgel] atenoloL 25 mg PO DAILY 06/16/17 03/17/21 Aspirin 325 mg PO DAILY 03/17/21 03/17/21 Cholecalciferol [Vitamin D3 (25 25 mcg PO DAILY 03/17/21 03/17/21 Mcg = 1000 Iu)] Omeprazole [PriLOSEC] 20 mg PO AC-BRKFST 03/17/21 03/17/21 Potassium Chloride ER [K-Dur 10] 10 meq PO DAILY 03/17/21 03/17/21 Previous Rx's Medication Instructions Recorded Cephalexin [Keflex] 500 mg PO Q6HR 10 Days #40 cap 03/23/21 HYDROcodone/APAP 7.5-325MG [[place] 1 each PO Q6HR PRN #36 tab 03/23/21 7.5] Sennosides-Docusate Sodium 2 each PO HS tab 03/23/21 [Senokot-S] Cephalexin [Keflex] 500 mg PO Q6HR 7 Days #28 cap 03/28/21 Sulfamethox-Tmp 800-160Mg [Bactrim 1 tab PO Q12HR 7 Days #14 tab 03/28/21 DS 800-160 mg] Allergies Allergy/AdvReac Type Severity Reaction Status Date / Time Penicillins Allergy Rash/Hives Verified 03/22/21 13:28 Review of Systems ROS Statement: Those systems with pertinent positive or pertinent negative responses have been documented in the HPI. ROS Other: All systems not noted in ROS Statement are negative. Past Medical History Past Medical History: Asthma, GERD/Reflux, Osteoarthritis (OA) Additional Past Medical History / Comment(s): MACULAR DEGENERATION History of Any Multi-Drug Resistant Organisms: None Reported Past Surgical History: Appendectomy, Heart Catheterization, Hernia Repair Additional Past Surgical History / Comment(s): ARTHROSCOPIC RIGHT AND LEFT KNEE, BILATERAL WRIST SURGERY, LEFT HAND -JOINT SURGERY, BRONCHOSCOPY , UMBICAL HERNIA REPAIR , CATARACT SURGERY-BILATERAL Past Anesthesia/Blood Transfusion Reactions: No Reported Reaction Additional Past Alcohol Use History / Comment(s): STARTED SMOKING AT AGE 14 QUIT 1968 SMOKED 1PPD - Past Family History Mother Family Medical History: No Reported History General Exam - General Exam Comments Initial Comments: Physical Exam GENERAL: Patient is well-developed and well-nourished. Patient is nontoxic and well-hydrated and is in no distress. HENT: Normocephalic, Atraumatic. EYES: PERRL, EOMI PULMONARY: Unlabored respirations. CARDIOVASCULAR: RRR Warm and well perfused extremities ABDOMEN: Non-distended SKIN: Right lower extremity is erythematous, tender there is induration, there is weep ing Surgical site is clean dry, pink there is no surrounding erythema or purulent drainage : Deferred NEUROLOGIC: Alert and oriented Normal speech Normal gait MUSCULOSKELETAL: Crease range of motion of the right knee secondary to recent surgery however no significant pain with range of motion or signs of a septic joint PSYCHIATRIC: No SI/HI Course Vital Signs 03/28/21 17:51 Temperature 97.7 F Pulse Rate 90 Respiratory 20 Rate Blood Pressure 129/72 O2 Sat by Pulse 99 Oximetry Medical Decision Making - Medical Decision Making The patient was seen and evaluated, history is obtained from the patient, patient with evidence of cellulitis the right lower extremity, there is no evidence of abscess on physical exam, ultrasound was negative for any DVT. Patient is on Keflex, we will extend the Keflex and add Bactrim to the treatment . Patient care was discussed with Fernie Dumont for Dr. Mackey who agrees with plan for additional antibiotics and follow-up in office this week. With no fever, no tachycardia no leukocytosis, this time there is no indication for admission to the hospital for IV antibiotics patient be treated with oral antibiotics outpatient basis he will be evaluated by his orthopedic surgeon this week, close return parameters were discussed patient was discharged home in stable condition. - Lab Data Result diagrams: 03/28/21 18:38 03/28/21 18:38 Lab Results 03/28/21 03/28/21 03/28/21 Range/Units 18:38 18:38 18:38 WBC 8.3 (3.8-10.6) k/uL RBC 4.06 L (4.30-5.90) m/uL Hgb 13.3 D (13.0-17.5) gm/dL Hct 38.4 L (39.0-53.0) % MCV 94.7 (80.0-100.0) fL MCH 32.9 (25.0-35.0) pg MCHC 34.7 (31.0-37.0) g/dL RDW 14.3 (11.5-15.5) % Plt Count 239 (150-450) k/uL MPV 7.4 Neutrophils % 75 % Lymphocytes % 13 % Monocytes % 7 % Eosinophils % 3 % Basophils % 1 % Neutrophils # 6.2 (1.3-7.7) k/uL Lymphocytes # 1.0 (1.0-4.8) k/uL Monocytes # 0.5 (0-1.0) k/uL Eosinophils # 0.2 (0-0.7) k/uL Basophils # 0.0 (0-0.2) k/uL Sodium 134 L (137-145) mmol/L Potassium 4.1 (3.5-5.1) mmol/L Chloride 103 (98-107) mmol/L Carbon Dioxide 22 (22-30) mmol/L Anion Gap 9 mmol/L BUN 16 (9-20) mg/dL Creatinine 0.71 (0.66-1.25) mg/dL Est GFR (CKD-EPI)AfAm >90 (>60 ml/min/1.73 sqM) Est GFR (CKD-EPI)NonAf >90 (>60 ml/min/1.73 sqM) Glucose 113 H (74-99) mg/dL Plasma Lactic Acid Timo 1.2 (0.7-2.0) mmol/L Calcium 8.7 (8.4-10.2) mg/dL Total Bilirubin 1.4 H (0.2-1.3) mg/dL AST 44 (17-59) U/L ALT 42 (4-49) U/L Alkaline Phosphatase 75 (38-126) U/L C-Reactive Protein 17.8 H (<1.0) mg/dL Total Protein 6.3 (6.3-8.2) g/dL Albumin 3.4 L (3.5-5.0) g/dL Disposition Clinical Impression: Cellulitis of lower extremity Disposition: HOME SELF-CARE Condition: Stable Prescriptions: Sulfamethox-Tmp 800-160Mg [Bactrim DS 800-160 mg] 1 tab PO Q12HR 7 Days #14 tab Cephalexin [Keflex] 500 mg PO Q6HR 7 Days #28 cap Is patient prescribed a controlled substance at d/c from ED?: No Referrals: Elaina Olivares MD [Primary Care Provider] - 1-2 days Lorenzo Mackey DO [Doctor of Osteopathic Medicine] - 1-2 days
[2021-03-28 18:45] LABS: Basophils % (A) 1 %; Eosinophils # (A) 0.2 k/uL (0-0.7); Eosinophils % (A) 3 %; HCT 38.4 % (39.0-53.0); Lymphocytes % (A) 13 %; MCH 32.9 pg (25.0-35.0); MCHC 34.7 g/dL (31.0-37.0); MCV 94.7 fL (80.0-100.0); Mean Platelet Volume 7.4; Monocytes # (A) 0.5 k/uL (0-1.0); Monocytes % (A) 7 %; Neutrophils # (A) 6.2 k/uL (1.3-7.7); Neutrophils % (A) 75 %; Platelet Count 239 k/uL (150-450); RBC 4.06 m/uL (4.30-5.90); RDW 14.3 % (11.5-15.5); WBC 8.3 k/uL (3.8-10.6)
[2021-03-28 18:51] LABS: Sodium 134 mmol/L (137-145)
[2021-03-28 18:56] LABS: ALT 42 U/L (4-49); AST 44 U/L (17-59); African American GFR (CKD) >90 (>60 ml/min/1.73 sqM); Albumin 3.4 g/dL (3.5-5.0); Alkaline Phosphatase 75 U/L (38-126); Anion Gap 9 mmol/L; Blood Urea Nitrogen 16 mg/dL (9-20); Calcium 8.7 mg/dL (8.4-10.2); Carbon Dioxide 22 mmol/L (22-30); Chloride 103 mmol/L (98-107); Glucose 113 mg/dL (74-99); Non-African American GFR(CKD) >90 (>60 ml/min/1.73 sqM); Potassium 4.1 mmol/L (3.5-5.1); Total Bilirubin 1.4 mg/dL (0.2-1.3); Total Protein 6.3 g/dL (6.3-8.2)
[2021-03-28 18:59] LABS: HGB 13.3 gm/dL (13.0-17.5)
[2021-03-28 19:08] LABS: C Reactive Protein 17.8 mg/dL (<1.0)
--- NOTE | 2021-03-28 19:18 | US ---
EXAMINATION TYPE: US venous doppler duplex LE RT DATE OF EXAM: 03/28/2021 7:06 PM COMPARISON: [id number]/[id number] CLINICAL HISTORY: edema, post op pain and swelling. SIDE PERFORMED: Right TECHNIQUE: The lower extremity deep venous system is examined utilizing real time linear array sonog julio with graded compression, doppler sonography and color-flow sonography. VESSELS IMAGED: Common Femoral Vein Deep Femoral Vein Greater Saphenous Vein * Femoral Vein Popliteal Vein Small Saphenous Vein * Proximal Calf Veins (* superficial vessels) Right Leg: Negative for DVT IMPRESSION: No evidence of deep vein thrombosis in the right leg.
[2021-03-28] MEDS ORDERED: CEPHALEXIN 500MG STARTER PACK 4 CAP BTL PO STA (19:22)
[2021-03-28] MEDS ORDERED: SULFAMETH-TMP DS STARTER PACK 2 TAB BTL PO STA (19:22)
[2021-03-28 20:33] VITALS: BP 121/76; PULSE 98; RESP 22; TEMP 98.9
== END 2021-03-28 20:30 | disposition home or self-care (01) ==
LOC: EC 16:55
DX: L03.115 Cellulitis of right lower limb (principal); J45.909 Unspecified asthma, uncomplicated; K21.9 Gastro-esophageal reflux disease without esophagitis; M19.90 Unspecified osteoarthritis, unspecified site; Z88.0 Allergy status to penicillin; Z79.899 Other long term (current) drug therapy; Z79.51 Long term (current) use of inhaled steroids
CPT/HCPCS: 36415; 80053; 83605; 84145; 85025; 86140; 87040; 99284

== ENCOUNTER → 2022-09-22 | Outpatient (CLI) | payer MEDICARE ==
--- NOTE | 2022-09-22 16:20 | NM ---
EXAMINATION TYPE: NM DatScan Brain SPECT DATE OF EXAM: 09/22/2022 COMPARISON: NONE CLINICAL INDICATION: Male, 77 years old with history of G20; TECHNIQUE: The patient was then injected with 4.6 of I-123 Ioflupane (DaTscan). Following a 3 hour delay, single photon emission computed tomography (SPECT) images of the brain were obtained. FINDINGS: There is decreased radiotracer uptake within the left posterior putamen. The radiotracer uptake withi n the right caudate impairment appear within normal limits. 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 Clini michelle correlation is recommended.
== END | disposition home or self-care (01) ==
LOC: RADNMMAIN 10:32
PROVIDERS: ATTEND Internal Medicine
DX: G20 Parkinson's disease (principal)
CPT/HCPCS: 78803; A9584

== ENCOUNTER → 2023-05-05 | Outpatient (CLI) | payer MEDICARE | END | disposition home or self-care (01) | LOC: LABWHC1 12:50 | PROVIDERS: ATTEND Internal Medicine | DX: Z53.9 Procedure and treatment not carried out, unspecified reason (principal) ==

== ENCOUNTER → 2023-05-06 | Outpatient (CLI) | payer MEDICARE ==
[2023-05-07 08:26] LABS: Cryptosporidium Antigen Negative (Negative)
== END | disposition home or self-care (01) ==
LOC: LABPRL 09:22
PROVIDERS: ATTEND Internal Medicine
DX: R19.5 Other fecal abnormalities (principal)
CPT/HCPCS: 83630; 87324; 87328; 87329

== ENCOUNTER → 2024-06-17 | Outpatient (CLI) | payer MEDICARE ==
[2024-06-17 10:38] LABS: Basophils # (A) 0.06 X 10*3/uL (0.00-0.10); Basophils % (A) 0.7 %; Eosinophils # (A) 0.41 X 10*3/uL (0.04-0.35); Eosinophils % (A) 4.9 %; HCT 49.3 % (39.6-50.0); HGB 16.3 g/dL (13.0-17.0); Lymphocytes # (A) 2.28 X 10*3/uL (0.90-5.00); Lymphocytes % (A) 27.5 %; MCH 30.5 pg (27.0-32.0); MCHC 33.1 g/dL (32.0-37.0); MCV 92.1 FL (80.0-97.0); Mean Platelet Volume 9.7 FL (9.5-12.2); Monocytes # (A) 0.63 X 10*3/uL (0.20-1.00); Monocytes % (A) 7.6 %; NRBC Per 100 WBC 0 X 10*3/uL (0.00-0.01); Neutrophils # (A) 4.89 X 10*3/uL (1.80-7.70); Neutrophils % (A) 58.9 %; Platelet Count 181 X 10*3/uL (140-440); RBC 5.35 X 10*6/uL (4.40-5.60); RDW 15.5 % (11.5-14.5)
[2024-06-17 10:47] LABS: Chol/HDL Ratio 2.31 Ratio; LDL Cholesterol,Calculated 76.1 mg/dL (0.0-131.0); VLDL Calculation 7.24 mg/dL (5.00-40.00)
[2024-06-17 11:03] LABS: ALT 7 U/L (10-49); AST 21 U/L (14-35)
== END | disposition home or self-care (01) ==
LOC: LABWHC1 06:55
PROVIDERS: ATTEND Internal Medicine
DX: I10 Essential (primary) hypertension (principal); E78.2 Mixed hyperlipidemia
CPT/HCPCS: 36415; 80061; 83036; 84450; 84460; 85025